=== PATIENT | female | born 1965 | race Caucasian/White ===

== ENCOUNTER 2020-01-10 11:20 | Outpatient (REF) | payer BC, SELFPAY ==
--- NOTE | 2020-01-10 | XR_ITS ---
EXAMINATION: XR FINGER, RIGHT CLINICAL INFORMATION: Mass on thumb. COMPARISON: None TECHNIQUE: 3 views. FINDINGS: In the 1st digit, there is no evidence of fracture or dislocation. Joint spaces are maintained. No abnormal soft tissue calcification is seen. 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 Remainder of the visualized bones appear unremarkable. IMPRESSION: No acute osseous abnormality. No abnormal soft tissue calcification. Etiology of the mass has not been determined by x-ray.
== END 2020-01-10 11:21 | disposition home or self-care (01) ==
LOC: HO.XRAY 11:20
PROVIDERS: PCP Internal Medicine; Visit Provider Orthopaedic Surgery
DX: R22.9 Localized swelling, mass and lump, unspecified (principal)
CPT/HCPCS: 73140

== ENCOUNTER 2020-03-05 12:27 | Outpatient (REF) | payer BC, SELFPAY ==
[2020-03-05 12:54] LABS: COVID-19 Test Negative (Negative)
== END 2020-03-05 12:28 | disposition home or self-care (01) ==
LOC: HO.EMPCOV 12:27
PROVIDERS: Visit Provider Internal Medicine
DX: Z20.828 Contact with and (suspected) exposure to other viral communicable diseases (principal)
CPT/HCPCS: 87635; C9803

== ENCOUNTER 2020-05-30 06:36 | Outpatient (REF) | payer BC, SELFPAY ==
[2020-05-30 07:01] LABS: MANUAL DIFF FLAG NO
[2020-05-30 07:03] LABS: Basophils Percent Auto 0.4 % (0-2); Eosinophils Absolute Auto 0.1 X10*3/uL (0.0-0.4); Eosinophils Percent Auto 1.3 % (0-4); Hematocrit 41.4 % (37-47); Hemoglobin 13.6 g/dl (12.0-16.0); Imm Gran Abs Auto 0.01 X10*3/uL (0.00-0.03); Imm Gran Pct Auto 0.2 % (0.0-0.4); Lymphocytes Absolute Auto 2.4 X10*3/uL (1.2-4.9); Mean Corpuscular HGB Conc 32.9 g/dl (31.0-35.0); Mean Corpuscular Hemoglobin 30.4 pg (27.0-33.0); Mean Corpuscular Volume 92.4 fL (80-98); Mean Platelet Volume 9.6 fL (9.4-12.3); Monocytes Absolute Auto 0.5 X10*3/uL (0.1-1.2); Monocytes Percent Auto 9.7 % (2-11); Neutrophils Absolute Auto 2.3 X10*3/uL (2.0-8.3); Neutrophils Percent Auto 43.4 % (45-73); Platelet Count 292 X10*3/uL (160-400); Red Blood Count 4.48 X10*6/uL (4.20-5.50); Red Cell Distribution Width 12.1 % (11.0-16.0); White Blood Count 5.2 X10*3/uL (4.8-10.8)
[2020-05-30 07:58] LABS: Thyroid Stimulating Hormone 1.11 uIU/mL (0.32-4.0); Vitamin D 25-OH Total 42.7 ng/mL (>30)
[2020-05-30 08:07] LABS: Alanine Aminotransferase 17 U/L (0-31); Albumin Level 4.8 g/dL (3.5-5.0); Alkaline Phosphatase 80 U/L (39-117); Anion Gap 12 (12-20); Aspartate Amino Transferase 19 U/L (5-31); Bilirubin Total 1.7 mg/dL (0.0-1.0); Blood Urea Nitrogen 24 mg/dL (9-16); Carbon Dioxide 32 mmol/L (22-29); Chloride 100 mmol/L (96-108); Cholesterol 282 mg/dL; Estimated Glomerular Filt Rate > 60; Glucose Fasting 95 mg/dL (60-99); HDL Cholesterol 95 mg/dL; LDL Cholesterol Calculated 175 mg/dl; Potassium 4.3 mmol/L (3.3-5.1); Sodium 140 mmol/L (135-145); Total Protein 7.9 g/dL (6.5-8.0); Triglycerides 62 mg/dL
[2020-05-30 08:39] LABS: SARS COV2 IgG Negative (Negative)
[2020-05-30 11:37] LABS: Appearance Urine CLEAR; Color Urine YELLOW; Glucose Urine UA NEG (NEG); Leukocyte Esterase Urine NEG (NEG); Nitrite Urine NEG (NEG); PH 6.5 (5.0-8.0); Specific Gravity - Urine 1.025 (1.005-1.025); Urine Blood 1+ (NEG); Urine Ketones NEG (NEG); Urine Protein NEG (NEG-TRACE)
[2020-05-30 11:45] LABS: Mucus Urine 3+ /LPF; RBC Urine 30-49 /HPF (0); Squamous Epithelial Cell Urine 1+ /LPF; WBC Urine 0 /HPF (0-4)
== END 2020-05-30 06:37 | disposition home or self-care (01) ==
LOC: HO.LAB 06:36
PROVIDERS: PCP Internal Medicine; Visit Provider Internal Medicine
DX: Z00.00 Encounter for general adult medical examination without abnormal findings (principal); Z20.822 Contact with and (suspected) exposure to COVID-19; E89.0 Postprocedural hypothyroidism; D72.820 Lymphocytosis (symptomatic); E55.9 Vitamin D deficiency, unspecified
CPT/HCPCS: 36415; 80053; 80061; 81001; 82306; 84443; 85025; 86769

== ENCOUNTER 2020-06-01 10:13 | Outpatient (REF) | payer BC, SELFPAY ==
[2020-06-01 12:38] LABS: Blood Urea Nitrogen 25 mg/dL (9-16)
== END 2020-06-01 10:14 | disposition home or self-care (01) ==
LOC: HO.LNP 10:13
PROVIDERS: PCP Internal Medicine; Visit Provider Internal Medicine
DX: R79.9 Abnormal finding of blood chemistry, unspecified (principal)
CPT/HCPCS: 84520

== ENCOUNTER 2020-06-07 08:49 | Outpatient (REF) | payer BC, SELFPAY ==
--- NOTE | ~2020-06-07 | MM_ITS ---
EXAMINATION: BONE DENSITOMETRY CLINICAL INDICATION: Osteopenia. COMPARISON: Previous BD dated 04/30/2018 and baseline BD dated 04/11/2016. TECHNIQUE: Using a [employer] DXA System (software version: 13.1) manufactured by [employer], dual-energy x-ray absorptiometry was performed of the lumbar spine and left hip. The images are of good technical quality. Summary results are attached. FINDINGS: AP SPINE L1-L4: Current: BMD 1.260 g/cm2, Z-score 1.6, T-score 0.7, normal, 0.8% increase from previous, 5.0% decrease from baseline (<5% change is not significant). Prior: BMD 1.250 g/cm2. Baseline: BMD 1.326 g/cm2. LEFT FEMUR, NECK: Current: BMD 0.773 g/cm2, Z-score -0.8, T-score -1.9, osteopenia. Prior: BMD 0.837 g/cm2. Baseline: BMD 0.902 g/cm2. LEFT FEMUR, TOTAL: Current: BMD 0.827 g/cm2, Z-score -0.7, T-score -1.4, osteopenia, 14.8% decrease from previous, 18.8% decrease from baseline (<5% change is not significant). Prior: BMD 0.971 g/cm2. Baseline: BMD 1.019 g/cm2. IDENTIFIED RISK FACTORS: Menopause. HISTORY OF FRACTURE: Foot. MEDICATIONS: Calcium supplements or multivitamin, vitamin D. MM/XR DEXA axial skeleton IMPRESSION: 1. DIAGNOSIS: Osteopenia based on the lowest T-score value of -1.9 in the femoral neck applying World Health Organization criteria. 2. 10-YEAR FRACTURE RISK PREDICTION, FRAX: Major osteoporotic fracture (clinical spine, forearm, hip or shoulder) 12.9%. Hip fracture 1.7%. 3. Treatment Recommendations: NOF guidelines recommend consideration for treatment in postmenopausal women and men age 50 and older presenting with the following: -A hip or vertebral (clinical or morphometric) fracture. -T-score less than or equal to -2.5 at the femoral neck or spine after appropriate evaluation to exclude secondary causes. -Low bone mass at the hip or spine and a 10-year fracture probability by FRAX of greater than or equal to 3% for hip fracture or greater than or equal to 20% for major osteoporotic fracture based on the [place] adapted WHO algorithm. 4. Other Recommendations: All treatment decisions require clinical judgment and consideration of individual patient factors, including patient preferences, comorbidities, previous drug use, risk factors not captured in the FRAX model (e.g. frailty, falls, vitamin D deficiency, increased bone turnover, interval significant decline in bone density) and possible under or overestimation of fracture risk by FRAX. Additional medical evaluation for secondary cause of low bone mineral density may be appropriate. FUTURE SCAN RECOMMENDATION: People with diagnosed cases of osteoporosis or at high risk for fracture should have regular bone mineral density tests. For patients eligible for Medicare, routine testing is allowed once every 2 years. The testing frequency can be increased to one year for patients who have rapidly progressing disease, those who are receiving or discontinuing medical therapy to restore bone mass, or have additional risk factors.
== END 2020-06-07 08:50 | disposition home or self-care (01) ==
LOC: HO.MAMMO 08:49
PROVIDERS: PCP Internal Medicine; Visit Provider Internal Medicine
DX: Z13.820 Encounter for screening for osteoporosis (principal); M85.80 Other specified disorders of bone density and structure, unspecified site; Z78.0 Asymptomatic menopausal state; Z79.899 Other long term (current) drug therapy
CPT/HCPCS: 77080

== ENCOUNTER 2020-07-16 14:01 | Outpatient (REF) | payer BC, SELFPAY ==
[2020-07-16 14:55] LABS: Blood Urea Nitrogen 25 mg/dL (9-16); Estimated Glomerular Filt Rate > 60
== END 2020-07-16 14:02 | disposition home or self-care (01) ==
LOC: HO.LAB 14:01
PROVIDERS: PCP Internal Medicine; Visit Provider Internal Medicine
DX: R79.9 Abnormal finding of blood chemistry, unspecified (principal)
CPT/HCPCS: 36415; 82565; 84520

== ENCOUNTER 2020-09-19 16:06 | Outpatient (REF) | payer BC, SELFPAY ==
--- NOTE | ~2020-09-19 | US_ITS ---
EXAMINATION: US RETROPERITONEAL LIMITED (RENAL ONLY) CLINICAL INFORMATION: Calculus of kidney. COMPARISON: Renal ultrasound 01/17/2019 and 05/01/2016. CT abdomen and pelvis 06/30/2018. KUB 09/20/2014 and 11/22/2008. TECHNIQUE: Real-time imaging of the kidneys. FINDINGS: RIGHT KIDNEY: 9.5 x 4.3 x 5.0 cm (SAG x AP x TRV). The kidney is normal in size, contour, and echogenicity. Renal cortical thickness is normal. No calculi or focal parenchymal lesions. No hydronephrosis. LEFT KIDNEY: 9.9 x 5.2 x 4.6 cm (SAG x AP x TRV). The kidney is normal in size, contour, and echogenicity. Renal cortical thickness is normal. There is a 2 mm echogenic density with twinkle artifact in the lower pole suggestive of a stone. No focal parenchymal lesions or hydronephrosis. US/US renal BI IMPRESSION: Small left renal stone.
== END 2020-09-19 16:07 | disposition home or self-care (01) ==
LOC: HO.US 16:06
PROVIDERS: Visit Provider Urology
DX: N20.0 Calculus of kidney (principal)
CPT/HCPCS: 76775

== ENCOUNTER → 2020-11-22 09:40 | Outpatient (BNVA) | payer BC, SELFPAY | PROVIDERS: PCP Internal Medicine; Visit Provider Urology ==

== ENCOUNTER 2021-05-07 13:03 | Outpatient (REF) | payer BC, SELFPAY ==
--- NOTE | ~2021-05-07 | US_ITS ---
EXAMINATION: US RETROPERITONEAL LIMITED (RENAL ONLY) CLINICAL INFORMATION: Calculus of kidney. COMPARISON: Renal ultrasound 09/19/2020 and 01/17/2019. CT abdomen and pelvis 06/30/2018. X-ray abdomen KUB 09/20/2014. TECHNIQUE: Real-time imaging of the kidneys. FINDINGS: RIGHT KIDNEY: 10.4 x 5.7 x 5.0 cm (SAG x AP x TRV). The kidney is normal in size, contour, and echogenicity. Renal cortical thickness is normal. No calculi or focal parenchymal lesions. No hydronephrosis. LEFT KIDNEY: 10.5 x 4.7 x 4.6 cm (SAG x AP x TRV). The kidney is normal in size, contour, and echogenicity. Renal cortical thickness is normal. There is question of 2 small stones in the mid and upper pole measuring 2 mm. No focal parenchymal lesions or hydronephrosis. US/US renal BI IMPRESSION: Question small left renal stones.
== END 2021-05-07 13:04 | disposition home or self-care (01) ==
LOC: HO.HMGCX 13:03
PROVIDERS: PCP Internal Medicine; Visit Provider Urology
DX: N20.0 Calculus of kidney (principal)
CPT/HCPCS: 76775

== ENCOUNTER → 2021-05-15 08:50 | Outpatient (BNVA) | payer BC, SELFPAY | PROVIDERS: PCP Internal Medicine; Visit Provider Urology ==

== ENCOUNTER 2021-07-17 08:17 | Outpatient (REF) | payer BC, SELFPAY ==
[2021-07-17 08:34] LABS: MANUAL DIFF FLAG NO
[2021-07-17 08:52] LABS: Basophils Percent Auto 0.4 % (0-2); Eosinophils Absolute Auto 0.1 X10*3/uL (0.0-0.4); Eosinophils Percent Auto 1.8 % (0-4); Hemoglobin 12.8 g/dl (12.0-16.0); Imm Gran Abs Auto 0.01 X10*3/uL (0.00-0.03); Imm Gran Pct Auto 0.2 % (0.0-0.4); Lymphocytes Percent Auto 42.9 % (20-40); Mean Corpuscular HGB Conc 32.8 g/dl (31.0-35.0); Mean Corpuscular Hemoglobin 30.3 pg (27.0-33.0); Mean Corpuscular Volume 92.2 fL (80.0-98.0); Mean Platelet Volume 9.3 fL (9.4-12.3); Monocytes Absolute Auto 0.5 X10*3/uL (0.1-1.2); Monocytes Percent Auto 10.5 % (2-11); Neutrophils Percent Auto 44.2 % (45-73); Platelet Count 293 X10*3/uL (160-400); Red Blood Count 4.23 X10*6/uL (4.20-5.50); Red Cell Distribution Width 12.4 % (11.0-16.0); White Blood Count 4.6 X10*3/uL (4.8-10.8)
[2021-07-17 09:17] LABS: Appearance Urine CLEAR; Color Urine YELLOW; Glucose Urine UA NEG (NEG); Leukocyte Esterase Urine NEG (NEG); Nitrite Urine NEG (NEG); Specific Gravity - Urine 1.015 (1.005-1.025); Urine Blood 2+ (NEG); Urine Ketones NEG (NEG); Urine Protein NEG (NEG-TRACE)
[2021-07-17 09:25] LABS: Alanine Aminotransferase 14 U/L (0-31); Albumin Level 4.3 g/dL (3.5-5.0); Alkaline Phosphatase 78 U/L (39-117); Anion Gap 10 (12-20); Aspartate Amino Transferase 16 U/L (5-31); Bilirubin Total 0.9 mg/dL (0.0-1.0); Blood Urea Nitrogen 23 mg/dL (9-16); Calcium 9.8 mg/dL (8.4-10.2); Carbon Dioxide 29 mmol/L (22-29); Chloride 103 mmol/L (96-108); Cholesterol 278 mg/dL; Estimated Glomerular Filt Rate > 60; Glucose Fasting 94 mg/dL (60-99); HDL Cholesterol 96 mg/dL; LDL Cholesterol Calculated 172 mg/dl; Potassium 4.4 mmol/L (3.3-5.1); Sodium 138 mmol/L (135-145); Total Protein 7.4 g/dL (6.5-8.0); Triglycerides 50 mg/dL
[2021-07-17 09:36] LABS: WBC Urine 0 /HPF (0-4)
[2021-07-17 09:37] LABS: Squamous Epithelial Cell Urine 1+ /LPF
[2021-07-17 09:46] LABS: Vitamin D 25-OH Total 54.8 ng/mL (>30)
== END 2021-07-17 08:18 | disposition home or self-care (01) ==
LOC: HO.LAB 08:17
PROVIDERS: PCP Internal Medicine; Visit Provider Internal Medicine
DX: Z00.00 Encounter for general adult medical examination without abnormal findings (principal); I10 Essential (primary) hypertension; M85.80 Other specified disorders of bone density and structure, unspecified site; E55.9 Vitamin D deficiency, unspecified; D72.820 Lymphocytosis (symptomatic)
CPT/HCPCS: 36415; 80053; 80061; 81001; 81003; 82306; 85025

== ENCOUNTER 2021-07-18 14:37 | Outpatient (REF) | payer BC, SELFPAY ==
[2021-07-18 15:12] LABS: Thyroid Stimulating Hormone 0.99 uIU/mL (0.32-4.0)
== END 2021-07-18 14:38 | disposition home or self-care (01) ==
LOC: HO.LNP 14:37
PROVIDERS: Visit Provider Internal Medicine
DX: E03.9 Hypothyroidism, unspecified (principal)
CPT/HCPCS: 84443

== ENCOUNTER 2022-04-08 10:42 | Outpatient (REF) | payer BC, SELFPAY ==
--- NOTE | ~2022-04-08 | US_ITS ---
EXAMINATION: US RETROPERITONEAL LIMITED (RENAL ONLY) CLINICAL INFORMATION: Calculus of kidney. COMPARISON: Renal ultrasound 05/07/2021 and 09/19/2020. CT abdomen and pelvis 06/30/2018. X-ray abdomen KUB 09/20/2014. TECHNIQUE: Real-time imaging of the kidneys. FINDINGS: RIGHT KIDNEY: 9.9 x 5.7 x 4.4 cm (SAG x AP x TRV). The kidney is normal in size, contour, and echogenicity. Renal cortical thickness is normal. No calculi or focal parenchymal lesions. No hydronephrosis. LEFT KIDNEY: 9.9 x 5.4 x 4.7 cm (SAG x AP x TRV). The kidney is normal in size, contour, and echogenicity. Renal cortical thickness is normal. No focal parenchymal lesions or hydronephrosis. There is an echogenic stones without caliectasis. A lower pole stone measuring 0.3 x 0.2 cm in midpole stone measures 0.4 x 0.3 cm. US/US renal BI IMPRESSION: 1. Nonobstructive echogenic stones midpole and lower pole left kidney. Only one renal stone was seen on previous ultrasound 09/19/2020 2. The right kidney is unremarkable.
== END 2022-04-08 10:43 | disposition home or self-care (01) ==
LOC: HO.US 10:42
PROVIDERS: Visit Provider Urology
DX: N20.0 Calculus of kidney (principal)
CPT/HCPCS: 76775

== ENCOUNTER 2022-05-15 09:28 | Outpatient (REF) | payer BC, SELFPAY | END 2022-05-15 09:29 | disposition home or self-care (01) | LOC: HO.LAB 09:28 | PROVIDERS: PCP Internal Medicine; Visit Provider Urology | DX: R31.29 Other microscopic hematuria (principal); N39.0 Urinary tract infection, site not specified; N20.0 Calculus of kidney; R35.0 Frequency of micturition; Z79.899 Other long term (current) drug therapy | CPT/HCPCS: 51798; 87086 ==

== ENCOUNTER 2022-07-10 09:16 | Outpatient (REF) | payer BC, SELFPAY ==
--- NOTE | ~2022-07-10 | MM_ITS ---
EXAMINATION: BONE DENSITOMETRY CLINICAL INDICATION: Osteopenia. Vitamin D deficiency. COMPARISON: Previous BD dated 06/07/2020 and baseline BD dated 04/11/2016. TECHNIQUE: Using a [employer] DXA System (software version: 13.1) manufactured by [employer], dual-energy x-ray absorptiometry was performed of the lumbar spine and left hip. The images are of good technical quality. Summary results are attached. FINDINGS: AP SPINE L1-L4: Current: BMD 1.182 g/cm2, Z-score 1.0, T-score 0.0, normal, 6.2% decrease from previous, 10.9% decrease from baseline (<5% change is not significant). Prior: BMD 1.260 g/cm2. Baseline: BMD 1.326 g/cm2. LEFT FEMUR, NECK: Current: BMD 0.858 g/cm2, Z-score -0.2, T-score -1.3, osteopenia. Prior: BMD 0.773 g/cm2. Baseline: BMD 0.902 g/cm2. LEFT FEMUR, TOTAL: Current: BMD 0.932 g/cm2, Z-score 0.1, T-score -0.6, normal, 12.7% increase from previous, 8.5% decrease from baseline (<5% change is not significant). Prior: BMD 0.827 g/cm2. Baseline: BMD 1.019 g/cm2. IDENTIFIED RISK FACTORS: Menopause. HISTORY OF FRACTURE: None listed. MEDICATIONS: Vitamin D, multivitamin. MM/XR DEXA axial skeleton IMPRESSION: 1. DIAGNOSIS: Osteopenia based on the lowest T-score value of -1.3 in the femoral neck applying World Health Organization criteria. 2. 10-YEAR FRACTURE RISK PREDICTION, FRAX: Major osteoporotic fracture (clinical spine, forearm, hip or shoulder) 7.0%. Hip fracture 0.5%. 3. Treatment Recommendations: NOF guidelines recommend consideration for treatment in postmenopausal women and men age 50 and older presenting with the following: -A hip or vertebral (clinical or morphometric) fracture. -T-score less than or equal to -2.5 at the femoral neck or spine after appropriate evaluation to exclude secondary causes. -Low bone mass at the hip or spine and a 10-year fracture probability by FRAX of greater than or equal to 3% for hip fracture or greater than or equal to 20% for major osteoporotic fracture based on the [place] adapted WHO algorithm. 4. Other Recommendations: All treatment decisions require clinical judgment and consideration of individual patient factors, including patient preferences, comorbidities, previous drug use, risk factors not captured in the FRAX model (e.g. frailty, falls, vitamin D deficiency, increased bone turnover, interval significant decline in bone density) and possible under or overestimation of fracture risk by FRAX. Additional medical evaluation for secondary cause of low bone mineral density may be appropriate. FUTURE SCAN RECOMMENDATION: People with diagnosed cases of osteoporosis or at high risk for fracture should have regular bone mineral density tests. For patients eligible for Medicare, routine testing is allowed once every 2 years. The testing frequency can be increased to one year for patients who have rapidly progressing disease, those who are receiving or discontinuing medical therapy to restore bone mass, or have additional risk factors.
== END 2022-07-10 09:17 | disposition home or self-care (01) ==
LOC: HO.MAMMO 09:16
PROVIDERS: PCP Internal Medicine; Visit Provider Internal Medicine
DX: Z13.820 Encounter for screening for osteoporosis (principal); M85.80 Other specified disorders of bone density and structure, unspecified site; E55.9 Vitamin D deficiency, unspecified; Z78.0 Asymptomatic menopausal state
CPT/HCPCS: 77080

== ENCOUNTER 2022-07-10 11:39 | Outpatient (REF) | payer BC, SELFPAY ==
[2022-07-10 11:46] LABS: MANUAL DIFF FLAG NO
[2022-07-10 12:43] LABS: Basophils Percent Auto 0.6 % (0-2); Eosinophils Absolute Auto 0.1 X10*3/uL (0.0-0.4); Eosinophils Percent Auto 1.8 % (0-4); Hematocrit 38.3 % (37.0-47.0); Imm Gran Abs Auto 0.01 X10*3/uL (0.00-0.03); Imm Gran Pct Auto 0.2 % (0.0-0.4); Lymphocytes Absolute Auto 2.3 X10*3/uL (1.2-4.9); Lymphocytes Percent Auto 44.1 % (20-40); Mean Corpuscular HGB Conc 33.9 g/dl (31.0-35.0); Mean Corpuscular Hemoglobin 31.8 pg (27.0-33.0); Mean Corpuscular Volume 93.6 fL (80.0-98.0); Mean Platelet Volume 10.5 fL (9.4-12.3); Monocytes Absolute Auto 0.5 X10*3/uL (0.1-1.2); Monocytes Percent Auto 10.1 % (2-11); Neutrophils Absolute Auto 2.2 x10*3/uL (2.0-8.3); Neutrophils Percent Auto 43.2 % (45-73); Platelet Count 332 X10*3/uL (160-400); Red Blood Count 4.09 X10*6/uL (4.20-5.50); Red Cell Distribution Width 12.7 % (11.0-16.0); White Blood Count 5.1 X10*3/uL (4.8-10.8)
[2022-07-10 13:05] LABS: Appearance Urine Clear; Color Urine Yellow; Glucose Urine UA Negative (Negative); Leukocyte Esterase Urine Negative (Negative); Nitrite Urine Negative (Negative); Specific Gravity - Urine 1.025 (1.005-1.025); UMIC TRIGGER UACC YES; Urine Blood Small (1+) (Negative); Urine Ketones Negative (Negative); Urine Protein Negative (Neg-Trace)
[2022-07-10 13:13] LABS: Bacteria Urine None Seen (None Seen); Hyaline Casts Urine 0-2 /LPF (0-2); RBC Urine >20 /HPF (0-2); Squamous Epithelial Cell Urine 0-2 /HPF (0-2); WBC Urine 0-5 /HPF (0-5)
[2022-07-10 13:21] LABS: Alanine Aminotransferase 14 U/L (0-31); Albumin Level 4.4 g/dL (3.5-5.0); Alkaline Phosphatase 91 U/L (39-117); Anion Gap 12 (12-20); Aspartate Amino Transferase 18 U/L (5-31); Bilirubin Total 0.9 mg/dL (0.0-1.0); Blood Urea Nitrogen 20 mg/dL (9-16); Calcium 9.3 mg/dL (8.4-10.2); Carbon Dioxide 30 mmol/L (22-29); Chloride 103 mmol/L (96-108); Cholesterol 260 mg/dL; Estimated Glomerular Filt Rate > 60; Glucose Fasting 98 mg/dL (60-99); HDL Cholesterol 93 mg/dL; LDL Cholesterol Calculated 158 mg/dl; Potassium 4.1 mmol/L (3.3-5.1); Sodium 141 mmol/L (135-145); Total Protein 7.1 g/dL (6.5-8.0); Triglycerides 46 mg/dL
[2022-07-10 13:37] LABS: Thyroid Stimulating Hormone 1.16 uIU/mL (0.32-4.0); Vitamin D 25-OH Total 44.4 ng/mL (>30)
== END 2022-07-10 11:40 | disposition home or self-care (01) ==
LOC: HO.LNP 11:39
PROVIDERS: Visit Provider Internal Medicine
DX: Z00.00 Encounter for general adult medical examination without abnormal findings (principal); E55.9 Vitamin D deficiency, unspecified; D72.820 Lymphocytosis (symptomatic); E89.0 Postprocedural hypothyroidism; I10 Essential (primary) hypertension
CPT/HCPCS: 80053; 80061; 81001; 82306; 84443; 85025

== ENCOUNTER 2022-07-25 13:24 | Outpatient (REF) | payer BC, SELFPAY ==
--- NOTE | ~2022-07-25 | XR_ITS ---
EXAMINATION: XR HIP, RIGHT CLINICAL INFORMATION: Pain COMPARISON: None available. TECHNIQUE: Two views of the right hip. FINDINGS: Bones and soft tissues are normal. No fracture. Alignment is anatomic. Hip joint space is maintained. XR/XR hip RT min 2V IMPRESSION: Normal right hip.
== END 2022-07-25 13:25 | disposition home or self-care (01) ==
LOC: HO.XRAY 13:24
PROVIDERS: PCP Internal Medicine; Visit Provider Internal Medicine
DX: M25.551 Pain in right hip (principal)
CPT/HCPCS: 73502

== ENCOUNTER 2023-04-30 07:51 | Outpatient (REF) | payer BC, SELFPAY ==
--- NOTE | ~2023-04-30 | US_ITS ---
EXAMINATION: US RETROPERITONEAL LIMITED (RENAL ONLY) CLINICAL INFORMATION: Calculus of kidney. COMPARISON: Renal ultrasound 04/08/2022 TECHNIQUE: Real-time imaging of the kidneys. FINDINGS: RIGHT KIDNEY: 9.4 x 4.5 x 5.6 cm (SAG x AP x TRV). The kidney is normal in size, contour, and echogenicity. Renal cortical thickness is normal. No calculi or focal parenchymal lesions. Pelviectasis without musa hydronephrosis. LEFT KIDNEY: 9.9 x 4.6 x 5.6 cm (SAG x AP x TRV). The kidney is normal in size, contour, and echogenicity. Renal cortical thickness is normal. No calculi or focal parenchymal lesions. No hydronephrosis. US/US renal BI IMPRESSION: Right renal pelviectasis without musa hydronephrosis. No nephrolithiasis appreciated.
== END 2023-04-30 07:52 | disposition home or self-care (01) ==
LOC: HO.US 07:51
PROVIDERS: PCP Internal Medicine; Visit Provider Urology
DX: N20.0 Calculus of kidney (principal)
CPT/HCPCS: 76775

== ENCOUNTER 2023-07-02 10:45 | Outpatient (AMB) | payer BC, SELFPAY ==
--- NOTE | 2023-07-02 11:10 | A.OFFVIS_ITS ---
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 Trades Assistants Required: No Accompanied by: Self / Same As Patient Allergies shrimp Allergy (Severe, Verified 07/02/23 11:19) HIVES/VOMITING latex [Latex] Allergy (Intermediate, Verified 07/02/23 11:19) RASH sulfamethoxazole [From BACTRIM] Allergy (Intermediate, Verified 07/02/23 11:19) HIVES trimethoprim [From BACTRIM] Allergy (Intermediate, Verified 07/02/23 11:19) HIVES Sulfa (Sulfonamide Antibiotics) Allergy (Unknown, Verified 07/02/23 11:19) hives From Benadryl Allergy (Severe, Uncoded 07/02/23 11:19) HIVES/SWELLING Benadryl Allergy (Unknown, Uncoded 07/02/23 11:19) rash Latex Gloves Allergy (Unknown, Uncoded 07/02/23 11:19) rash Medication List - Last Reconciled 07/02/23 by Amrit Rodriges MD levothyroxine 75 mcg PO QAM pyridoxine (vitamin B6) 50 mg PO DAILY 90 days HPI HPI Comments History of Present Illness Details Jazzmine is a pleasant female. She is a patient of Dr. Cope. is seen for the following urologic conditions - microscopic hematuria - nephrolithiasis Persistent microscopic hematuria Renal ultrasound shows no stones Did say had pain on left side Refill vitamin B6 Six-month follow-up repeat imaging Nephrolithiasis Initial presentation with microscopic hematuria Imaging - 09/24 renal ultrasound 2 mm left-sided stone - 05/28 renal ultrasound 2 mm left-sided stone stable - 04/28 renal ultrasound 2 small stones l eft side - 05/30 renal ultrasound no stones seen Occasional flank pain but otherwise stable Therapeutic plan PFSH Medical History Hematuria OA (osteoarthritis) Thyroid disease Uterine fibroid H/O urinary retention Multiple renal calculi Surgical History History of surgery Social History Advance Directives Date on File: 01/10/20 Review of Systems Const Denies chills and Denies fever(s) Card Reports no additional complaints and Denies syncope Resp Denies cough GI Denies abdominal pain and Denies heartburn Reports as per HPI and Denies change in libido Neuro Denies syncope Psych Denies change in libido Endo Denies change in libido Physical Exam Const General: cooperative, healthy appearing, comfortable and no acute distress Orientation/consciousness: patient oriented x3 HEENT Face and sinus: Yes normal facial exam Mouth: moist mucous membranes Neck Neck: Yes normal visual inspection, Yes full ROM and Yes trachea midline Chest Chest palpation & inspection: normal inspection of the chest Resp Effort & Inspection: normal respiratory effort, able to speak in complete sent ences and no respiratory distress GI Inspection: Yes normal to inspection Back/Spine/Pelvis Cervical Spine: normal cervical lordosis Thoracic/Lumbar Spine: thoracic and lumbar spine normal to inspection Skin General skin exam: no rashes or lesions noted Neuro General: patient oriented x3, gait normal, tone normal and moves all extremities Extrem General: Yes normal to inspection and Yes capillary refill normal Assessment & Plan Assessment & Plan (1) Renal stones: Code(s): N20.0 - Calculus of kidney Plan Six-month follow-up imaging Orders: Orders US renal BI 6 Months N20.0 - Calculus of kidney Medications: Refilled pyridoxine (vitamin B6) 50 mg PO DAILY 90 days 90 tabs 1RF N20.0 - Calculus of kidney Patient Instructions: Imaging studies, laboratory and physical exam results were discussed and reviewed in detail. No major barriers to patient understanding were identified. An opportunity to ask questions regarding the treatment plan was provided. All questions were answered. The patient expressed understanding and agreement with the above treatment plan. The patient is aware they should contact our office by phone for worsening of their current condition or the appearance of new urologic symptoms. Compliance is encouraged with any medications and followup testing that is ordered. It is a privilege to participate in the urologic care of your patient. If you have any questions or concerns regarding treatment for the above conditions, or other urologic issues, please do not hesitate to contact me. The office t elephone contact is [phone]. This note is constructed using voice recognition software. While every effort has been made to ensure accuracy development technical lead errors may have been included. Yours sincerely, Dr Amrit Rodriges MD, [facility] - Urology Providers of Expert, Compassionate Care for the Genitourinary System Coding Level of Care Code Est Pt Level 4 (78758) Diagnoses Renal stones N20.0
== END 2023-07-02 11:43 | disposition home or self-care (01) ==
PROVIDERS: PCP Internal Medicine; Visit Provider Urology
DX: N20.0 Calculus of kidney (principal)
CPT/HCPCS: 99214

== ENCOUNTER → 2023-07-02 10:45 | Outpatient (BNVA) | payer BC, SELFPAY | PROVIDERS: Visit Provider Urology ==

== ENCOUNTER 2023-08-07 09:40 | Outpatient (REF) | payer BC, SELFPAY ==
[2023-08-07 09:55] LABS: MANUAL DIFF FLAG NO
[2023-08-07 10:45] LABS: Basophils Percent Auto 0.6 % (0-2); Eosinophils Absolute Auto 0.1 X10*3/uL (0.0-0.4); Eosinophils Percent Auto 1.5 % (0-4); Hematocrit 37.4 % (37.0-47.0); Imm Gran Abs Auto 0.01 X10*3/uL (0.00-0.03); Imm Gran Pct Auto 0.2 % (0.0-0.4); Lymphocytes Percent Auto 42.5 % (20-40); Mean Corpuscular HGB Conc 34.8 g/dl (31.0-35.0); Mean Corpuscular Hemoglobin 32.3 pg (27.0-33.0); Mean Platelet Volume 9.8 fL (9.4-12.3); Monocytes Absolute Auto 0.4 X10*3/uL (0.1-1.2); Monocytes Percent Auto 9.5 % (2-11); Neutrophils Absolute Auto 2.1 x10*3/uL (2.0-8.3); Neutrophils Percent Auto 45.7 % (45-73); Platelet Count 306 X10*3/uL (160-400); Red Blood Count 4.02 X10*6/uL (4.20-5.50); Red Cell Distribution Width 12.8 % (11.0-16.0); White Blood Count 4.6 X10*3/uL (4.8-10.8)
[2023-08-07 10:46] LABS: Appearance Urine Clear; Color Urine Yellow; Glucose Urine UA Negative (Negative); Leukocyte Esterase Urine Trace (Negative); Nitrite Urine Negative (Negative); UMIC TRIGGER UACC YES; Urine Blood Small (1+) (Negative); Urine Ketones Negative (Negative); Urine Protein Negative (Neg-Trace)
[2023-08-07 10:53] LABS: Bacteria Urine None Seen (None Seen); Hyaline Casts Urine 0-2 /LPF (0-2); RBC Urine >20 /HPF (0-2); Squamous Epithelial Cell Urine 0-2 /HPF (0-2); WBC Urine 0-5 /HPF (0-5)
[2023-08-07 11:28] LABS: Alanine Aminotransferase 21 U/L (0-31); Albumin Level 4.4 g/dL (3.5-5.0); Alkaline Phosphatase 90 U/L (39-117); Anion Gap 16 (12-20); Aspartate Amino Transferase 21 U/L (5-31); Blood Urea Nitrogen 22 mg/dL (9-16); Calcium 9.8 mg/dL (8.4-10.2); Carbon Dioxide 27 mmol/L (22-29); Chloride 103 mmol/L (96-108); Cholesterol 252 mg/dL (<200); Estimated Glomerular Filt Rate > 60; Glucose Fasting 86 mg/dL (60-99); HDL Cholesterol 78 mg/dL (>40); LDL Cholesterol Calculated 160 mg/dL (<100); Potassium 4.5 mmol/L (3.3-5.1); Sodium 141 mmol/L (135-145); Total Protein 7.6 g/dL (6.5-8.0); Triglycerides 72 mg/dL (<150)
[2023-08-07 11:48] LABS: Vitamin D 25-OH Total 43.8 ng/mL (>30)
== END 2023-08-07 09:41 | disposition home or self-care (01) ==
LOC: HO.LAB 09:40
PROVIDERS: PCP Internal Medicine; Visit Provider Internal Medicine
DX: I10 Essential (primary) hypertension (principal); D72.820 Lymphocytosis (symptomatic); E55.9 Vitamin D deficiency, unspecified; E03.9 Hypothyroidism, unspecified
CPT/HCPCS: 36415; 80053; 80061; 81001; 82306; 84443; 85025

== ENCOUNTER 2023-11-26 08:58 | Outpatient (REF) | payer BC, SELFPAY ==
--- NOTE | ~2023-11-26 | US_ITS ---
EXAMINATION: US BILATERAL KIDNEYS CLINICAL INFORMATION: Calculus of kidney. COMPARISON: Renal ultrasound 04/30/2023 TECHNIQUE: Real-time imaging of the kidneys. FINDINGS: RIGHT KIDNEY: 9.8 x 6.0 x 5.7 cm (SAG x AP x TRV). The kidney is normal in size, contour, and echogenicity. Renal cortical thickness is normal. No calculi or focal parenchymal lesions. No hydronephrosis. LEFT KIDNEY: 10.6 x 4.8 x 4.6 cm (SAG x AP x TRV). The kidney is normal in size, contour, and echogenicity. Renal cortical thickness is normal. No focal parenchymal lesions or hydronephrosis. 2 mm nonobstructing calculus in the upper pole. US/US renal BI IMPRESSION: 2 mm nonobstructing calculus left upper kidney. No hydronephrosis. Electronically signed by: Dayday Mukherjee MD 12/09/2023 03:32 PM EDT
== END 2023-11-26 08:59 | disposition home or self-care (01) ==
LOC: HO.US 08:58
PROVIDERS: PCP Internal Medicine; Visit Provider Urology
DX: N20.0 Calculus of kidney (principal)
CPT/HCPCS: 76775

== ENCOUNTER 2023-12-24 09:51 | Emergency (ER) | payer BC, SELFPAY ==
--- NOTE | ~2023-12-24 | CT_ITS ---
EXAMINATION: CT ABDOMEN AND PELVIS WITHOUT CONTRAST CLINICAL INFORMATION: History of stones. Left flank pain. COMPARISON: Bilateral renal ultrasound November 26, 2023. CT scan of the pelvis June 30, 2018 TECHNIQUE: Multidetector volumetric imaging was performed from the superior aspect of the liver through the pubic symphysis. Sagittal and coronal reformatted images were obtained on the technologist's workstation. This CT examination was performed using dose optimization techniques as appropriate, variously including the following: *Automated exposure control *Adjustment of mA and/or kV according to patient size (this includes techniques or standardized protocols for targeted exams where dose is matched to indication/reason for exam; i.e. extremities or head) *Use of iterative reconstruction technique DLP: 475 mGy-cm FINDINGS: LUNG BASES: The visualized lung bases are unremarkable. LIVER, GALLBLADDER, AND BILIARY TREE: The liver is normal in size, shape, and attenuation. No focal hepatic lesion or biliary ductal dilatation is present. The gallbladder is unremarkable with no evidence of radiopaque gallstones, gallbladder wall thickening, or obvious pericholecystic inflammatory changes. PANCREAS: Unremarkable. SPLEEN: Unremarkable. ADRENAL GLANDS: Unremarkable. KIDNEYS AND URETERS: There is a 2 mm sized nonobstructive stone lower pole of left kidney. There is no stone in the right kidney. There is no hydronephrosis. No ureteral calculi. Kidneys are normal in size and contour with normal cortical thickness. BLADDER: Unremarkable. GASTROINTESTINAL TRACT: The small and large bowel are unremarkable. The appendix is unremarkable. ABDOMINAL WALL: No significant hernia is appreciated. LYMPH NODES: Normal. VASCULAR: Unremarkable. PELVIC VISCERA: Uterus is anteverted. Partially calcified fibroids in the fundus of the uterus. There is no axillary abnormality. No fluid in the cul-de-sac. OSSEOUS STRUCTURES: Unremarkable. CT/CT abdomen pelvis wo IV con IMPRESSION: 1. No acute abnormality CT scan abdomen pelvis. 2. Nonobstructive stone lower pole left kidney. No hydronephrosis. No ureteral calculi. Fleischner guidelines were followed. Electronically signed by: Sunil Golden MD 12/24/2023 03:20 PM EDT
--- NOTE | ~2023-12-24 | US_ITS ---
EXAMINATION: US TRIPLEX LOWER EXTREMITY, LEFT CLINICAL INFORMATION: Calf pain COMPARISON: None available. TECHNIQUE: Color-flow triplex imaging with spectral analysis and compression Doppler were performed on the left lower extremity. FINDINGS: Respiratory variation, normal compression and augmented flow are noted throughout the left lower extremity. The visualized common femoral vein, superficial femoral vein, profunda femoral vein, popliteal vein and midcalf peroneal and posterior tibial venous segments show no evidence of deep venous thrombosis. There is no Dyer's cyst. US/US venous duplex LE LT IMPRESSION: No evidence of deep venous thrombosis involving the left lower extremity. Electronically signed by: Yo Tolentino DO 12/24/2023 12:18 PM EDT
[2023-12-24 10:00] VITALS: BP 143/90; PULSE 79; RESP 16; TEMP 37; O2SAT 99; BMI 24.9
[2023-12-24 10:32] LABS: MANUAL DIFF FLAG NO
[2023-12-24 10:37] LABS: Basophils Percent Auto 0.2 % (0-2); Eosinophils Absolute Auto 0.1 X10*3/uL (0.0-0.4); Eosinophils Percent Auto 0.5 % (0-4); Hemoglobin 13.1 g/dl (12.0-16.0); Imm Gran Abs Auto 0.11 X10*3/uL (0.00-0.03); Imm Gran Pct Auto 1.2 % (0.0-0.4); Lymphocytes Absolute Auto 2.2 X10*3/uL (1.2-4.9); Lymphocytes Percent Auto 23.2 % (20-40); Mean Corpuscular HGB Conc 35.4 g/dl (31.0-35.0); Mean Corpuscular Hemoglobin 31.7 pg (27.0-33.0); Mean Corpuscular Volume 89.6 fL (80.0-98.0); Mean Platelet Volume 8.8 fL (9.4-12.3); Monocytes Absolute Auto 0.9 X10*3/uL (0.1-1.2); Monocytes Percent Auto 9.6 % (2-11); Neutrophils Absolute Auto 6.1 x10*3/uL (2.0-8.3); Neutrophils Percent Auto 65.3 % (45-73); Platelet Count 447 X10*3/uL (160-400); Red Blood Count 4.13 X10*6/uL (4.20-5.50); Red Cell Distribution Width 12.4 % (11.0-16.0); White Blood Count 9.3 X10*3/uL (4.8-10.8)
[2023-12-24 10:52] LABS: Alanine Aminotransferase 88 U/L (0-31); Albumin Level 4.1 g/dL (3.5-5.0); Alkaline Phosphatase 130 U/L (39-117); Anion Gap 12 (12-20); Aspartate Amino Transferase 35 U/L (5-31); Bilirubin Total 0.6 mg/dL (0.0-1.0); Blood Urea Nitrogen 18 mg/dL (9-16); Calcium 9.9 mg/dL (8.4-10.2); Carbon Dioxide 26 mmol/L (22-29); Chloride 105 mmol/L (96-108); Creatinine Clr Calc Pharmacy 76.2; Estimated Glomerular Filt Rate > 60; Glucose Random 101 mg/dL (60-115); Potassium 3.3 mmol/L (3.3-5.1); Sodium 140 mmol/L (135-145)
[2023-12-24 11:21] LABS: Influenza A PCR NEGATIVE (Negative); Influenza B PCR NEGATIVE (Negative); Resp Syncy Virus RNA Qual PCR NEGATIVE (Negative); SARS COV2 PCR INHOUSE NEGATIVE (Negative)
--- NOTE | 2023-12-24 11:31 | ED_ITS ---
HPI - Abdominal Pain General Chief Complaint: Abdominal Pain Stated Complaint: l side pain-pcp sent for mri Time Seen by Provider: 12/24/23 11:24 Source: patient and family () Mode of arrival: ambulatory Limitations: no limitations History of Present Illness ED Provider: IRENE UP PA-C HPI narrative: 58 year old female with pmhx significant for renal calculi, thyroid disase, OA presents to the ED today for evaluation of left flank pain x10 days. Pain is constant however waxes and wanes in intensity. Currently 10/13. She was evaluated for this in [facility] with renal ultrasound showing 6mm left kidney stone. Prior to her trip, the stone measures 2mm on US ordered by PCP. Admits the pain is now extending into her left hip and down her left leg into her calf. Endorses difficulty ambulating due to the pain. Reports history of kidney stones however states this feels different. Denies injury/ trauma/ fall. She tells me she returned from a trip to [facility] on Thursday (2 days ago). Denies fever, chills, chest pain, SOB, palpitations, cough, hemoptysis, nausea, vomiting, abdominal pain, diarrhea, constipation, dysuria, hematuria. Denies back pain, saddle anesthesia, numbness/tingling/weakness of the lower extremity, bowel or bladder incontinence or retention. Denies hx IVDU. Related Data Home Medications ?Medication ?Instructions ?Recorded ?Confirmed levothyroxine 75 mcg tablet 75 mcg PO QAM 05/15/21 07/02/23 Previous Rx's ?Medication ?Instructions ?Recorded pyridoxine (vitamin B6) 50 mg 50 mg PO DAILY 90 days #90 tabs 07/02/23 tablet ketorolac 10 mg tablet 10 mg PO Q8H 5 days #15 tabs 12/24/23 tamsulosin 0.4 mg capsule (Flomax) 0.4 mg PO BEDTIME 7 days #7 caps 12/24/23 Allergies Allergy/AdvReac Type Severity Reaction Status Date / Time shrimp Allergy Severe HIVES/VOMIT Verified 12/24/23 10:03 ING latex [Latex] Allergy Intermediate RASH Verified 12/24/23 10:03 sulfamethoxazole Allergy Intermediate HIVES Verified 12/24/23 10:03 [From BACTRIM] trimethoprim [From BACTRIM] Allergy Intermediate HIVES Verified 12/24/23 10:03 Sulfa (Sulfonamide Allergy Unknown hives Verified 12/24/23 10:03 Antibiotics) From Benadryl Allergy Severe HIVES/SWELL Uncoded 07/02/23 11:19 ING Benadryl Allergy Unknown rash Uncoded 07/02/23 11:19 Latex Gloves Allergy Unknown rash Uncoded 07/02/23 11:19 Review of Systems Review of Systems Constitutional: No fever, chills, fatigue, night sweats, weight changes ENT/Mouth: No ear pain, hearing loss, nasal congestion, sinus pain, rhinorrhea, sore throat Eyes: No eye pain, swelling, redness, vision changes, discharge Cardio: No chest pain, palpitations, DURAN, orthopnea, peripheral edema Pulm: No SOB, cough, sputum, wheezing, dyspnea, hemoptysis GI: No nausea, vomiting, hematemesis, abdominal pain, diarrhea, constipation, hematochezia, melena : No irregular bleeding, dysuria, frequency, urgency, hesitancy, hematuria, urinary flow changes, urinary incontinence or retention, +left flank pain MSK: No back pain, neck pain, joint pain, myalgias, +left calf pain Skin: No lesions, rashes Neuro: No weakness, numbness, paresthesias, LOC, dizziness, headache Psych: No anxiety/panic, depression, SI/HI, AH/VH All other systems reviewed and are negative. [facility] Past Medical History Attestation statement: The following information was validated with the patient. Source: old records reviewed and nursing notes reviewed Medical History Hematuria OA (osteoarthritis) Thyroid disease Uterine fibroid H/O urinary retention Multiple renal calculi Surgical History History of surgery Social History Social History Smoked in Last 30 Days: No Use of substances other than those prescribed or required for medical reasons: No Any prior treatment program specific to substance use: No Advance Directives: Yes Advance Directives on File: Yes Advance Directives Date on File: 01/10/20 Do you have a plan to hurt others: No Plan Patient : No Physical Exam ED Vital Signs: Vital Signs - 24 hr 12/24/23 10:00 12/24/23 13:06 12/24/23 16:25 Temperature 98.6 F 98 F 98.7 F Pulse Rate 79 74 67 Respiratory Rate 16 16 16 Blood Pressure 143/90 H 154/79 H 115/60 Pulse Oximetry 99 98 97 Oxygen Delivery Method Room Air Room Air Room Air BMI result Body Mass Index 24.9 Patient hypertensive to 143/90, vitals otherwise WNL General: Well appearing, in no acute distress. Skin: Warm, dry, intact. No rashes or lesions. Head: Normocephalic, atraumatic. EENT: Hearing is intact b/l. Conjunctiva clear. Sclera is anicteric. PERRLA. Moist mucous membranes.? Neck: Supple without LAD. FROM. Trachea midline.? Cardiac: Chest wall symmetric. RRR. No MRG. No JVD. Lungs: Normal respiratory effort without accessory muscle use. CTA bilaterally. Abdomen: Soft, non-tender, non-distended. No rebound tenderness or guarding. Positive BS x4. Left CVAT. Back: No midline spinous or paraspinal tenderness. No step off deformity. Ext: Upper and lower extremities atraumatic, without deformity, swelling or erythema. Full ROM throughout. Left calf tender to palpation without overlying erythema or swelling. No pitting or peripheral edema Neuro: AOx3. Normal speech. Strength 5/5 intact throughout. No saddle anesthesia. Sensation intact to light touch. NV intact distally. Ambulating with steady gait. Psych: Appropriate mood and affect. Responds appropriately to questions. Course Course Course Narrative: 1131 -- CBC without leukocytosis or left shift. no anemia, h&h stable. chemitry without acute electrolyte abnormality requiring intervention. BUN slightly elevated to 18, creatinine wnl. elevated liver enzymes. she has tested negative for covid, flu, rsv. UA pending. > on chart review, patient had renal ultrasound performed on 11/26/2023 which showed a 2 mm nonobstructing calculi within left upper kidney without evidence of hydronephrosis > ct abdomen/ pelvis ordered to evaluate for stone/ obstruction > I have concern for DVT given recent travel to [place] w/ left hip pain and calf tenderness > duplex added on. > IV fluids ordered, morphine ordered for pain control. 1340 -- Patient's pain initially well-controlled with morphine. Patient reports moving wrong , now has worsening pain. IV Toradol ordered. Will continue to monitor. Urinalysis showing small urine blood, negative nitrites, trace leukocyte esterase with 6-10 RBCs, no urine bacteria seen. Venous duplex LLE without evidence of VTE. CT abd pending. 1639 -- CT abdomen/pelvis showing nonobstructive 2 mm stone to lower pole of left kidney without evidence of hydronephrosis. On my interpretation of CT scan, I appreciate multiple stones within the urinary bladder and the left ureter. Remarkable small/large bowel. Normal appendix. No other acute findings. > on re-evaluation, patient reports complete resolution of symptoms following Toradol administration. This makes me suspect renal colic. Informed patient of workup results. Will send her home with Flomax and Toradol for pain control. She tells me she has a follow-up with her urologist, Dr. Rodriges next week. I advised her to keep this appointment. Patient has remained stable throughout ED visit today. Discussed worrisome signs and symptoms and when to return to the ED. All questions answered at this time. Patient is agreeable with disposition and stable for discharge. Medical Decision Making Medical Decision Making MDM Narrative: 58 year old female with pmhx significant for renal calculi, thyroid disase, OA presents to the ED today for evaluation of left flank pain x10 days. Hypertensive to 143/90, vitals otherwise wnl. Afebrile. She is nontoxic appearing and in NAD. On exam, there is left cvat. Abdomen is soft, nondistended, nontender to palpation, no rebound tenderness or guarding. Normoactive bowel sounds x4. no midline spinous tenderness or step off deformity. positive left calf tenderness. no overlying erythema/ swelling. No pitting or peripheral edema. Differential diagnosis includes urinary tract infection, nephrolithiasis, renal colic, hydronephrosis, constipation, sciatica, DVT, arthritis. Lower suspicion for pyelonephritis, diverticulosis/diverticulitis. Presentation not consistent with cauda equina, epidural abscess, Guillain-Gipsy, cord compression. Labs, viral serology, urinalysis ordered from triage. Plan to add on venous duplex ultrasound to assess for DVT along with CT abdomen/pelvis to evaluate for stone/obstruction. IV fluids and morphine ordered for pain control. Will continue to re-evaluate. Differential Diagnosis Differential Diagnoses: The differential diagnosis associated with the presentation includes As above Admission/Observation Not indicated. Lab Data MDM Lab Attestation statement: I reviewed the patient's lab results. As above 12/24/23 10:21 12/24/23 10:21 Labs: Lab Results 12/24/23 12/24/23 12/24/23 Range/Units 10:21 11:50 13:01 WBC 9.3 (4.8-10.8) X10*3/uL RBC 4.13 L (4.20-5.50) X10*6/uL Hgb 13.1 (12.0-16.0) g/dl Hct 37.0 (37.0-47.0) % MCV 89.6 (80.0-98.0) fL MCH 31.7 (27.0-33.0) pg MCHC 35.4 H (31.0-35.0) g/dl RDW 12.4 (11.0-16.0) % Plt Count 447 H D (160-400) X10*3/uL MPV 8.8 L (9.4-12.3) fL Immature Gran % (Auto) 1.2 H (0.0-0.4) % Neut % (Auto) 65.3 (45-73) % Lymph % (Auto) 23.2 (20-40) % Jackson % (Auto) 9.6 (2-11) % Eos % (Auto) 0.5 (0-4) % Baso % (Auto) 0.2 (0-2) % Lymph # (Auto) 2.2 (1.2-4.9) X10*3/uL Jackson # (Auto) 0.9 (0.1-1.2) X10*3/uL Eos # (Auto) 0.1 (0.0-0.4) X10*3/uL Baso # (Auto) 0.0 (0.0-0.2) X10*3/uL Abs Immat Gran (auto) 0.11 H (0.00-0.03) X10*3/uL Absolute Neuts (auto) 6.1 (2.0-8.3) x10*3/uL Absolute Nucleated RBC 0.000 (0.0-0.012) X10*3/uL Nucleated RBC % (auto) 0.0 (0.0-0.2) /100WBC ESR 51 H (0-20) MM/HR Sodium 140 (135-145) mmol/L Potassium 3.3 D (3.3-5.1) mmol/L Chloride 105 (96-108) mmol/L Carbon Dioxide 26 (22-29) mmol/L Anion Gap 12 (12-20) BUN 18 H (9-16) mg/dL Creatinine 0.75 (0.5-1.4) mg/dL Estim Creat Clear Calc 76.2 Estimated GFR > 60 Random Glucose 101 (60-115) mg/dL Calcium 9.9 (8.4-10.2) mg/dL Total Bilirubin 0.6 (0.0-1.0) mg/dL AST 35 H (5-31) U/L ALT 88 H (0-31) U/L Alkaline Phosphatase 130 H (39-117) U/L C-Reactive Protein 2.98 H (< or = 0.50) mg/dL Total Protein 8.0 (6.5-8.0) g/dL Albumin 4.1 (3.5-5.0) g/dL Urine Color Yellow Urine Appearance Clear Urine pH 8.0 (5.0-9.0) Ur Specific [place] 1.010 (1.005-1.025) Urine Protein Negative (Neg-Trace) mg/dL Urine Glucose (UA) Negative (Negative) mg/dL Urine Ketones 15 (Negative) mg/dL Urine Blood Small (1+) H (Negative) Urine Nitrite Negative (Negative) Ur Leukocyte Esterase Trace H (Negative) Urine RBC 6-10 H (0-2) /HPF Urine WBC 0-5 (0-5) /HPF Ur Squamous Epith Cells 0-2 (0-2) /HPF Urine Bacteria None Seen (None Seen) Hyaline Casts 0-2 (0-2) /LPF Respiratory Panel Duarte See Note Adenovirus (Rapid PCR) Not Detected (Not Detect.) B.pert (TEM-PCR) Not Detected (Not Detect.) B.parapertussis DNA PCR Not Detected (Not Detect.) C. pneumoniae DNA (PCR) Not Detected (Not Detect.) Coronavirus OC43 (PCR) Not Detected (Not Detect.) Coronavirus HKU1 (PCR) Not Detected (Not Detect.) Coronavirus 229E (PCR) Not Detected (Not Detect.) Coronavirus NL63 (PCR) Not Detected (Not Detect.) Human Metapneumovir PCR Not Detected (Not Detect.) Influenza A (RT-PCR) Not Detected (Not Detect.) Influenza Type A (PCR) NEGATIVE (Negative) Influenza B (RT-PCR) Not Detected (Not Detect.) Influenza Type B (PCR) NEGATIVE (Negative) M. pneumoniae (PCR) Not Detected (Not Detect.) Parainfluenza 1 (PCR) Not Detected (Not Detect.) Parainfluenza 2 (PCR) Not Detected (Not Detect.) Parainfluenza 3 (PCR) Not Detected (Not Detect.) Parainfluenza 4 (PCR) Not Detected (Not Detect.) RSV (PCR) Not Detected (Not Detect.) RSV RNA Qual (PCR) NEGATIVE (Negative) Entero/Rhino (PCR) Not Detected (Not Detect.) SARS-CoV-2 RNA (RT-PCR) NEGATIVE Not Detected (Negative) Independent Interpretation I performed an independent interpretation of an: Ultrasound and CT Scan Interpretation: Renal ultrasound 11/26/23 showing small nonobstructing calculus in left kidney, agree with radiologist's interpretation. Venous duplex left lower extremity without evidence of DVT, agree with radiologist's interpretation. CT abdomen/pelvis with multiple stones left UVJ, larger stone with left kidney, agree with radiologist's interpretation. Radiology Impression Discussion of test interpretation with radiology: I have reviewed the radiologist's reading. Radiologist Impression: EXAMINATION: US BILATERAL KIDNEYS CLINICAL INFORMATION: Calculus of kidney. COMPARISON: Renal ultrasound 04/30/2023 TECHNIQUE: Real-time imaging of the kidneys. FINDINGS: RIGHT KIDNEY: 9.8 x 6.0 x 5.7 cm (SAG x AP x TRV). The kidney is normal in size, contour, and echogenicity. Renal cortical thickness is normal. No calculi or focal parenchymal lesions. No hydronephrosis. LEFT KIDNEY: 10.6 x 4.8 x 4.6 cm (SAG x AP x TRV). The kidney is normal in size, contour, and echogenicity. Renal cortical thickness is normal. No focal parenchymal lesions or hydronephrosis. 2 mm nonobstructing calculus in the upper pole. US/US renal BI IMPRESSION: 2 mm nonobstructing calculus left upper kidney. No hydronephrosis. Electronically signed by: Dayday Mukherjee MD 12/09/2023 03:32 PM EDT EXAMINATION: US TRIPLEX LOWER EXTREMITY, LEFT CLINICAL INFORMATION: Calf pain COMPARISON: None available. TECHNIQUE: Color-flow triplex imaging with spectral analysis and compression Doppler were performed on the left lower extremity. FINDINGS: Respiratory variation, normal compression and augmented flow are noted throughout the left lower extremity. The visualized common femoral vein, superficial femoral vein, profunda femoral vein, popliteal vein and midcalf peroneal and posterior tibial venous segments show no evidence of deep venous thrombosis. There is no Dyer's cyst. US/US venous duplex LE LT IMPRESSION: No evidence of deep venous thrombosis involving the left lower extremity. Electronically signed by: Yo Tolentino DO 12/24/2023 12:18 PM EDT EXAMINATION: CT ABDOMEN AND PELVIS WITHOUT CONTRAST CLINICAL INFORMATION: History of stones. Left flank pain. COMPARISON: Bilateral renal ultrasound November 26, 2023. CT scan of the pelvis June 30, 2018 TECHNIQUE: Multidetector volumetric imaging was performed from the superior aspect of the liver through the pubic symphysis. Sagittal and coronal reformatted images were obtained on the technologist's workstation. This CT examination was performed using dose optimization techniques as appropriate, variously including the following: *Automated exposure control *Adjustment of mA and/or kV according to patient size (this includes techniques or standardized protocols for targeted exams where dose is matched to indication/reason for exam; i.e. extremities or head) *Use of iterative reconstruction technique DLP: 475 mGy-cm FINDINGS: LUNG BASES: The visualized lung bases are unremarkable. LIVER, GALLBLADDER, AND BILIARY TREE: The liver is normal in size, shape, and attenuation. No focal hepatic lesion or biliary ductal dilatation is present. The gallbladder is unremarkable with no evidence of radiopaque gallstones, gallbladder wall thickening, or obvious pericholecystic inflammatory changes. PANCREAS: Unremarkable. SPLEEN: Unremarkable. ADRENAL GLANDS: Unremarkable. KIDNEYS AND URETERS: There is a 2 mm sized nonobstructive stone lower pole of left kidney. There is no stone in the right kidney. There is no hydronephrosis. No ureteral calculi. Kidneys are normal in size and contour with normal cortical thickness. BLADDER: Unremarkable. GASTROINTESTINAL TRACT: The small and large bowel are unremarkable. The appendix is unremarkable. ABDOMINAL WALL: No significant hernia is appreciated. LYMPH NODES: Normal. VASCULAR: Unremarkable. PELVIC VISCERA: Uterus is anteverted. Partially calcified fibroids in the fundus of the uterus. There is no axillary abnormality. No fluid in the cul-de-sac. OSSEOUS STRUCTURES: Unremarkable. CT/CT abdomen pelvis wo IV con IMPRESSION: 1. No acute abnormality CT scan abdomen pelvis. 2. Nonobstructive stone lower pole left kidney. No hydronephrosis. No ureteral calculi. Fleischner guidelines were followed. Electronically signed by: Sunil Golden MD 12/24/2023 03:20 PM EDT Independent Historian Clinical information obtained from an independent historian. History obtained from or confirmed by: Spouse () External Record Review External record reviewed: Inpatient record, Office record, Outpatient record, Prior outpatient labs, Prior outpatient radiology, Primary care record and Outside ED record Prescription Management I considered prescription management with: Pain Medication (Toradol) and Other (Flomax) Chronic Conditions Patient?s care impacted by: Other (nephrolithiasis) Social Determinants Patient?s care significantly limited by Social Determinants of Health including: Other Social Determinant of Health Medications Administered Discontinued Medications Generic Name Dose Route Start Last Admin Trade Name Freq PRN Reason Stop Dose Admin Sodium Chloride 1,000 mls @ 999 mls/hr 12/24/23 11:45 12/24/23 12:55 Ns IV 12/24/23 12:45 Infused .Q1H1M DARNELL Infusion Ketorolac Tromethamine 15 mg 12/24/23 13:40 12/24/23 13:44 Ketorolac Tromethamine 15 Mg/Ml Vial IVPUSH 12/24/23 13:41 15 mg ONCE ONE Administration Morphine Sulfate 4 mg 12/24/23 11:38 12/24/23 11:51 Morphine Sulfate 4 Mg/Ml Cartridge IVPUSH 12/24/23 11:39 4 mg ONCE ONE Administration Protocol Ondansetron HCl 4 mg 12/24/23 11:41 12/24/23 11:51 Ondansetron Hcl 4 Mg/2 Ml Vial IVPUSH 12/24/23 11:42 4 mg ONCE ONE Administration Critical Care Time Critical Care Time Critical Care Time: Yes Total Critical Care Time: 34 Attestation: Critical care time in the amount of 34 minutes has been provided to the patient in terms of direct patient care, frequent reevaluation on IV morphine, review and interpretation of medical data and results, and management of potentially life-threatening conditions. This is all outside of any medical procedures. Discharge Plan Discharge Clinical Impression: Renal colic on left side, Sciatica, Calculus of left kidney Patient Disposition: Home, Self-Care Instructions: Renal Colic (ED), Sciatica (ED), Lower Back Exercises (ED) Additional Instructions: Your blood work today is reassuring. Your urine shows small amount of blood.. The CT scan of your abdomen shows 2 mm nonobstructing stone within your left kidney along with other stones within your left ureter. You are likely passing kidney stones. Flomax has been sent to your pharmacy to help flush the stones out. Toradol is a pain medication that has been sent to your pharmacy. Do not take this with other NSAIDs such as Motrin or naproxen as this can increase risk of GI bleeding. Keep your follow-up appointment with Dr. Rodriges next week. The ultrasound of your left leg is negative for clot. As discussed, you may be experiencing sciatica. You have been provided with exercises to try at home. If pain persists, please follow up with PCP as you may require referral to physical therapy. Return with new or worsening symptoms. In the case of an emergency call 911. Prescriptions: New tamsulosin [Flomax] 0.4 mg capsule 0.4 mg PO BEDTIME 7 Days Qty: 7 0RF ketorolac 10 mg tablet 10 mg PO Q8H 5 Days Qty: 15 0RF No Action pyridoxine (vitamin B6) 50 mg tablet 50 mg PO DAILY 90 Days Qty: 90 1RF levothyroxine 75 mcg tablet 75 mcg PO QAM Referrals: [facility] [place] [facility] [Provider Group] Print Language: Hungarian
[2023-12-24 11:49] LABS: C Reactive Protein 2.98 mg/dL (< or = 0.50)
--- OUTSIDE RECORDS SUMMARY | 2023-12-24 11:50 | XMS_ITS | Patient Health Record ---
Author Organization Billy Cope MD Address [address] [place], [place] [id number] Care Team Providers Care Air Control/Anti Air Warfare Officer Name Role Phone Billy Cope Primary Care Provider ALLERGIES Allergen (clinical drug ingredient) Drug/Non Drug Allergy documented on EMR Reaction Allergy Type Onset Date Status Levaquin tendon inflammation Drug Allergy Active diphenhydramine Benadryl hives Drug Allergy A ctive sulfamethoxazole / trimethoprim Bactrim (uncoded) rash Allergy Active RESULTS Component Value Reference Range Notes US renal BI Reviewed date:05/01/2023 12:53:41 PM Interpretation: Performing Lab: Notes/Report: [address] [address] Ultrasound Report Signed Patient: Jazzmine Holbrook MR#: [id number] 56 : 1965 Acct:[id number] Age/Sex: 58 / F ADM Date: 04/30/23 Loc: HO.US Attending Dr: Amrit Rodriges MD Ordering Physician: Amrit Rodriges MD Date of Service: 04/30/23 Procedure(s): US renal BI Accession Number(s): [id number] cc: Amrit Rodriges MD; Billy Cope MD EXAMINATION: US RETROPERITONEAL LIMITED (RENAL ONLY) CLINICAL INFORMATION: Calculus of kidney. COMPARISON: Renal ultrasound 04/08/2022 TECHNIQUE: Real-time imaging of the kidneys. FINDINGS: RIGHT KIDNEY: 9.4 x 4.5 x 5.6 cm (SAG x AP x TRV). The kidney is normal in size, contour, and echogenicity. Renal cortical thickness is normal. No calculi or focal parenchymal lesions. Pelviectasis without musa hydronephrosis. LEFT KIDNEY: 9.9 x 4.6 x 5.6 cm (SAG x AP x TRV). The kidney is normal in size, contour, and echogenicity. Renal cortical thickness is normal. No calculi or focal parenchymal lesions. No hydronephrosis. US/US renal BI IMPRESSION: Right renal pelviectasis without musa hydronephrosis. No nephrolithiasis appreciated. Dictated By: Sarah Bonner MD Signed By: <Electronically signed by Sarah Bonner MD in OV> 04/30/23 1901 DD/ 0812 TD/TT: General Internal Medicine Physician: PAP SMEAR (THIN PREP) Reviewed date:05/14/2023 02:30:31 PM Interpretation:Negative Performing Lab: Notes/Report: Negative PAP SMEAR (THIN PREP) MAMMOGRAM DIGITAL BILATERAL SCREEN Reviewed date:05/28/2023 01:58:42 PM Interpretation:Stable Performing Lab: Notes/Report: Stable Complete Blood Count Auto Di ff Reviewed date:08/07/2023 12:45:37 PM Interpretation: Performing Lab:[facility], [address] [place] [phone] Notes/Report: White Blood Count 4.6 4.8-10.8 X10*3/uL Red Blood Count 4.02 4.20-5.50 X10*6/uL Hemoglobin 13.0 12.0-16.0 g/dl Hematocrit 37.4 37.0-47.0 % Mean Corpuscular Volume 93.0 80.0-98.0 fL Mean Corpuscular Hemoglobin 32.3 27.0-33.0 pg Mean Corpuscular HGB Conc 34.8 31.0-35.0 g/dl Red Cell Distribution Width 12.8 11.0-16.0 % Platelet Count 306 160-400 X10*3/uL Mean Platelet Volume 9.8 9.4-12.3 fL Neutrophils Percent Auto 45.7 45-73 % Imm Gran Pct Auto 0.2 0.0-0.4 % Lymphocytes Percent Auto 42.5 20-40 % Monocytes Percent Auto 9.5 2-11 % Eosinophils Percent Auto 1.5 0-4 % Basophils Percent Auto 0.6 0-2 % NRBC Pct Auto 0.0 0.0-0.2 /100WBC Neutrophils Absolute Auto 2.1 2.0-8.3 x10*3/u L Imm Gran Abs Auto 0.01 0.00-0.03 X10*3/uL Lymphocytes Absolute Auto 2.0 1.2-4.9 X10*3/u L Monocytes Absolute Auto 0.4 0.1-1.2 X10*3/uL Eosinophils Absolute Auto 0.1 0.0-0.4 X10*3/u L Basophils Absolute Auto 0.0 0.0-0.2 X10*3/uL NRBC Abs Auto 0.000 0.0-0.012 X10*3/uL Comprehensive [place]. Panel Fa Reviewed date:08/10/2023 06:47:12 PM Interpretation: Performing Lab:[facility], [address] [place] [phone] Notes/Report: Sodium 141 135-145 mmol/L Potassium 4.5 3.3-5.1 mmol/L Chloride 103 96-108 mmol/L Carbon Dioxide 27 22-29 mmol/L Anion Gap 16 12-20 Blood Urea Nitrogen 22 9-16 mg/dL Creatinine 0.82 0.5-1.4 mg/dL Estimated Glomerular Filt Rate > 60 NOTE: For -Afghan individuals, multiply the result by 1.210. Chronic Kidney Disease: Estimated GFR < 60 mL/min/1.73m2 Severe Kidney Disease: Estimated GFR < 15 mL/min/1.73m2 Glucose Fasting 86 60-99 mg/dL Calcium 9.8 8.4-10.2 mg/dL Bilirubin Total 1.0 0.0-1.0 mg/dL Aspartate Amino Transferase 21 5-31 U/L Alanine Aminotransferase 21 0-31 U/L Total Protein 7.6 6.5-8.0 g/dL Albumin Level 4.4 3.5-5.0 g/dL Alkaline Phosphatase 90 39-117 U/L Lipid Panel Reviewed date:08/10/2023 12:44:49 PM Interpretation: Performing Lab:[facility], [address] [place] [phone] Notes/Report: Triglycerides 72 <150 mg/dL Desirable Triglyceride: less than 150 mg/dL Borderline High Triglyceride 150-199 mg/dL High Triglyceride: 200-499 mg/dL Very High Triglyceride: greater than or equal to 5OO mg/dL Cholesterol 252 <200 mg/dL Desirable Cholesterol: less than 200 mg/dL Borderline High Cholesterol: 200-239 mg/dL High Cholesterol: greater than 239 mg/dL LDL Cholesterol Calculated 160 <100 mg/dL Desirable LDL: less than 100 mg/dL Near Optimal/Above Optimal LDL: 110-129 mg/dL Borderline High LDL: 130-159 mg/dL High LDL: 160-189 mg/dL Very High LDL: greater than or equal to 190 mg/dL HDL Cholesterol 78 >40 mg/dL Desirable HDL: greater than 40 mg/dL Note: This HDL assay may give artificially low results in patients with liver disease. Vitamin D 25-OH Total Reviewed date:08/10/2023 12:38:06 PM Interpretation: Performing Lab:[facility], [address] [place] [phone] Notes/Report: Vitamin D 25-OH Total 43.8 >30 ng/mL Health Based Reference Values* < 20 ng/mL Deficient 20-30 ng/mL Insufficient > 30 ng/mL Sufficient *Meena WHITFIELD. N Engl J Med. 2007;357:266-280 Care must be taken in interpreting Vitamin D results from different laboratories and methodologies. Published data demonstrated that results from patients undergoing hemodialysis may show a negative bias when tested with various automated 25-OH vitamin D assays when compared to LC-MS/MS. When testing samples from patients whose predominant form of Vitamin D is Vitamin D2, such as patients receiving Vitamin D2 supplementation, results that are subtherapeutic should be confirmed with another method such as LC-MS/MS. TSH reflex Free T4 Reviewed date:08/10/2023 12:37:57 PM Interpretation: Performing Lab:[facility], [address] [place] [phone] Notes/Report: TSH reflex Free T4 1.20 0.32-4.0 uIU/mL UA ClnCatch+Micro w/rflx Cul t Reviewed date:08/07/2023 12:43:03 PM Interpretation: Performing Lab:[facility], [address] [place] [phone] Notes/Report: Urine, Clean Catch Color Urine Yellow Appearance Urine Clear PH 7.0 5.0-9.0 Glucose Urine UA Negative Negative mg/dL Urine Blood Small (1+) Negative Specific [place] - Urine 1.020 1.005-1.025 Urine Protein Negative Neg-Trace mg/dL Urine Ketones Negative Negative mg/dL Nitrite Urine Negative Negative Leukocyte Esterase Urine Trace Negative RBC Urine >20 0-2 /HPF WBC Urine 0-5 0-5 /HPF Squamous Epithelial Cell Urine 0-2 0-2 /HPF Bacteria Urine None Seen None Seen Hyaline Casts Urine 0-2 0-2 /LPF US renal BI Reviewed date:12/09/2023 04:33:49 PM Interpretation: Performing Lab: Notes/Report: [address] [address] Ultrasound Report Signed Patient: Jazzmine Holbrook MR#: [id number] 56 : 1965 Acct:[id number] Age/Sex: 58 / F ADM Date: 11/26/23 Loc: HO.US Attending Dr: Amrit Rodriges MD Ordering Physician: Amrit Rodriges MD Date of Service: 11/26/23 Procedure(s): US renal BI Accession Number(s): [id number] cc: Amrit Rodriges MD; Billy Cope MD EXAMINATION: US BILATERAL KIDNEYS CLINICAL INFORMATION: Calculus of kidney. COMPARISON: Renal ultrasound 04/30/2023 TECHNIQUE: Real-time imaging of the kidneys. FINDINGS: RIGHT KIDNEY: 9.8 x 6.0 x 5.7 cm (SAG x AP x TRV). The kidney is normal in size, contour, and echogenicity. Renal cortical thickness is normal. No calculi or focal parenchymal lesions. No hydronephrosis. LEFT KIDNEY: 10.6 x 4.8 x 4.6 cm (SAG x AP x TRV). The kidney is normal in size, contour, and echogenicity. Renal cortical thickness is normal. No focal parenchymal lesions or hydronephrosis. 2 mm nonobstructing calculus in the upper pole. US/US renal BI IMPRESSION: 2 mm nonobstructing calculus left upper kidney. No hydronephrosis. Electronically signed by: Dayday Mukherjee MD 12/09/2023 03:32 PM EDT Dictated By: Dayday Mukherjee MD Signed By: <Electronically signed by Dayday Mukherjee MD in OV> 12/09/23 1532 DD/ 4 TD/TT: 11/26/23927 General Internal Medicine Physician: BALTA REASON FOR REFERRAL No Information MEDICATIONS Medication SIG (Take, Route, Frequency, Duration) Notes Start Date End Date Status Levothyroxine Sodium 75 MCG TAKE ONE TABLET BY MOUTH EVERY DAY IN THE MORNING ON AN EMPTY STOMACH Active EpiPen 2-Tyson 0.3 MG/0.3ML as directed In jection daily for 1 dose 01/31/2013 Active Singulair 10 MG 1 tablet Orally Once a day for 30 day(s) Not-Taking Albuterol Sulfate HFA 108 (90 Base) MCG/ACT 1 puff as needed Inhalation every 4 hrs for 30 days 01/19/2023 Active Diclofenac Potassium 50 MG 1 tablet with food or milk as needed Orally Twice a day Not-Taking Tamsulosin HCl 0.4 MG 1 capsule Orally O nce a day for 30 day(s) Not-Taking Vitamin B6 50 MG 1 tablet Orally for 30 day(s) Not-Taking Acetaminophen-Codeine 300-30 MG 1 tablet as needed Orally every 6 hrs for 7 days 12/24/2023 Active Zomig 2.5 MG 1 tablet as needed o ne time Nasally Once a day for 10 days 05/24/2013 Not-Taking IMMUNIZATIONS Vaccine Route Administration Date Status Comme nts Flu Vaccine Unknown 12/29/2012 Administered At work. Fluarix Quadrivalent Unknown 01/17/2014 Administered [facility] Flu Vaccine IM Intramuscular 01/03/2016 Administered pt wa s given the vaccine at her [facility]'s place of work. Flu Vaccine Unknown 01/23/2017 Administered pt was give n the vaccine at work. TDaP IM Intramuscular 11/18/2017 Administered pt was given the vaccine at [facility] in [place]. Tetanus Unknown 11/18/2017 Administered Flu Vaccine IM Intramuscular 01/22/2018 Administered Pt wa s given the vaccine at work @ [facility] [place] Fluarix Quadrivalent Unknown 01/09/2020 Administered SAt work [facility] [place] Covid Vaccine Unknown 03/27/2020 Administered [facility] [place] Covid Vaccine Unknown 04/19/2020 Administered [facility] [place] SARS-COV-2 Pfizer Unknown 01/14/2021 Administered [employer] Fluarix Quadrivalent Unknown 01/10/2021 Administered Flu Vaccine Unknown 01/17/2014 Pending SOCIAL HISTORY Tobacco Use: Social History Observation Description Date Details (start date - stop date) Never Smoker NA - NA Sex Assigned At : Social History Observation Description Sex Assigned At Unknown Tobacco Use/Smoking Question Answer Notes Patient is a nonsmoker Additional Findings: Tobacco Non-User Cu rrent non-smoker, currently using no form of tobacco Alcohol Screen Question Answer Notes Did you have a drink contain ing alcohol in the past year? Yes How often did you have a dri nk containing alcohol in the past year? Monthly or less (1 point) How many drinks did you have on a typical day when you were drinking in the past year? 1 or 2 drinks (0 point) How often did you have 6 or more drinks on one occasion in the past year? Never (0 point) Points 1 Interpretation Negative PROBLEMS Problem Type ICD Code Onset Dates Problem Status W/U Status Risk SNOMED Code Notes Problem Lymphocytosis (D72.820) Active confirmed 97298143 Problem Reflux esophagitis (K21.00) Active confirmed 730919240 Problem Vitamin D deficiency (E55.9) Active confirmed 99056471 Problem Osteopenia (M85.80) Active confirmed 626959175 Problem Essential hypertension (I10) Active confirmed 27506567 Problem Postoperative hypothyroidism (E89.0) Active confirmed 33746136 Problem Oropharyngeal dysphagia (R13.12) Active confirmed 99534121 Problem Sciatica of right side (M54.31) Active confirmed 33616803 Problem Mild intermittent asthmatic bronchitis with acute exacerbation (J45.21) Active confirmed 371754612 Problem Hypothyroidism (acquired) (E03.9) Active confirmed Hypothyroidism (51867004) Problem Lumbar discitis (M46.46) Active confirmed 084806748 VITAL SIGNS Blood pressure diastolic 82 mm Hg 12/24/2023 Height 64.25 in 12/24/2023 Blood pressure systolic 146 mm Hg 12/24/2023 Weight 150 lbs 12/24/2023 BMI 25.54 kg/m2 12/24/2023 Encounters Encounter Location Date Provider Diagnosis Billy Cope MD [address] [place], [place] [id number] 08/14/2023 Billy Cope Microscopic hematuri a R31.29 ; Annual physical exam Z00.00 ; Hypothyroidism (acquired) E03.9 ; Essential hypertension I10 and Depression screening Z13.31 Billy Cope MD [address] [place] [id number] 08/07/2023 Billy Cope Blood tests for routine general physical examination Z00.00 ; Essential hypertension I10 ; Lymphocytosis D72.820 ; Vitamin D deficiency E55.9 and Hypothyroidism (acquired) E03.9 Billy Cope MD [address] [place] [id number] 12/24/2023 Billy Cope Lumbar discitis M46. 46 Billy Cope MD [address] [place] [id number] 01/19/2023 Billy Cope Mild intermittent asthmatic bronchitis with acute exacerbation J45.21 Billy Cope MD [address] [place] [id number] 08/07/2023 Billy Cope [address] [place] [id number] 08/10/2023 Billy Cope MD [address] [place] [id number] 11/23/2023 Billy Cope Shrimp allergy Z91.0 13 ASSESSMENTS Encounter Date Diagnosis Assessment Notes Treatment Notes Treatment Clinical Notes 08/14/2023 Annual physical exam (ICD-10 - Z00.00) labs reviewed and discussed with patient 08/14/2023 Microscopic hematuria (ICD-10 - R31.29) i feel with family history bladder cancer should get cysto at least every 5 years/ JAZZMINE IS A PATIENT OF DR RODRIGES AT [facility] [place] [place] [facility] , SHE WILL CALL TO DISCUSS WITH HIM 08/07/2023 Blood tests for routine general physical examination (ICD-10 - Z00.00) 12/24/2023 Lumbar discitis (ICD-10 - M46.46) needs STAT with reading.. if not getting worse to go to the hospital . does not want to go at present/ patient will be going to [facility] [place] [place] ER/ CALLED ER AND OFFICE NOTE FAXED 01/19/2023 Mild intermittent asthmatic bronchitis with acute exacerbation (ICD-10 - J45.21) Patient/Caregiver verbalizes understanding of medications side effects, interactions and warnings. 11/23/2023 Shrimp allergy (ICD-10 - Z91.013) 08/14/2023 Hypothyroidism (acquired) (ICD-10 - E03.9) doing well, will continue current regiment 08/07/2023 Essential hypertension (ICD-10 - I10) 08/14/2023 Essential hypertension (ICD-10 - I10) stable, will continue to monitor 08/07/2023 Lymphocytosis (ICD-10 - D72.820) 08/14/2023 Depression screening (ICD-10 - Z13.31) negative screen 08/07/2023 Vitamin D deficiency (ICD-10 - E55.9) 08/07/2023 Hypothyroidism (acquired) (ICD-10 - E03.9) PLAN OF TREATMENT Pending Test Test Name Order Date Electrocardiogram (EKG) 04/30/2017 Electrocardiogram (EKG) 05/13/2018 Electrocardiogram (EKG) 05/20/2019 PAP SMEAR (THIN PREP) 09/29/2014 BONE DENSITY DEXA 06/01/2020 MR lumbar spine wo/w con 12/24/2023 Future Test Test Name Order Date BONE DENSITY DEXA 06/08/2021 Next Appt Details Provider Name:Billy hanna, 12/25/2023 11:45:00 AM, [address] [place] [address], [phone], Provider Name:Billy hanna, 02/11/2024 03:00:00 PM, [address] [place] [address], [phone], Provider Name:Billy ahnna, 08/11/2024 07:15:00 AM, [address] [place] [address], [phone], Provider Name:Billy hanna, 08/18/2024 02:30:00 PM, [address] [place] [address], [phone], Insurance Providers Payer Name Payer Address Payer Phone Subscriber Number Group Number Insured Name Patient Relationship to Insured Coverage Start Date Coverage End Date [employer] [address] [place], [place] [id number] Jazzmine Holbrook Self - patient is the insured MEDICAL (GENERAL) HISTORY Medical History History ICD Code 10/2008 - Cysto, Cysto again 07/2018 Nega tive work up with Dr Gonsales ADOLESCENT SPECIALIST, [facility]DENH[facility], ap pt 09/02/13 Colonoscopy done 06/10/[address] Che - repeat 10 years Surgical History Surgery Date(Month/Year) thyroidectomy, subtotal 2006
--- OUTSIDE RECORDS SUMMARY | 2023-12-24 11:50 | XMS_ITS ---
Author Organization Billy Cope MD Address [address] [place] [phone] Care Team Providers Care Electric Organ Checker Name Role Phone Billy Cope Primary Care Provider ALLERGIES Allergen (clinical drug ingredient) Drug/Non Drug Allergy documented on EMR Reaction Allergy Type Onset Date Status Levaquin tendon inflammation Drug Allergy Active diphenhydramine Benadryl hives Drug Allergy A ctive sulfamethoxazole / trimethoprim Bactrim (uncoded) rash Allergy Active REASON FOR VISIT ANNUAL EXAM, No Covid symptoms MEDICATIONS Medication SIG (Take, Route, Frequency, Duration) Notes Start Date End Date Status Singulair 10 MG 1 tablet Orally Once a day for 30 day(s) Active Levothyroxine Sodium 75 MCG TAKE ONE TABLET BY MOUTH EVERY DAY IN THE MORNING ON AN EMPTY STOMACH Active Zomig 2.5 MG 1 tablet as needed o ne time Nasally Once a day for 10 days 05/24/2013 Not-Taking Vitamin B6 50 MG 1 tablet Orally for 30 day(s) Not-Taking Albuterol Sulfate HFA 108 (90 Base) MCG/ACT 1 puff as needed Inhalation every 4 hrs for 30 days 01/19/2023 Active EpiPen 2-Tyson 0.3 MG/0.3ML as directed In jection daily for 1 dose 01/31/2013 Not-Taking SOCIAL HISTORY Tobacco Use: Social History Observation [...] Never (0 point) Points 1 Interpretation Negative VITAL SIGNS BMI 25.54 kg/m2 08/14/2023 Blood pressure systolic 124 mm Hg 08/14/19 24 Blood pressure diastolic 76 mm Hg 024 Height 64.25 in 08/14/2023 Weight 150 lbs 08/14/2023 weight is up 5 pounds since 01-19-23 Encounters Encounter Location Date Provider Diagnosis Billy Cope MD [address] [place] [address] [address] [place], [place] [id number] 08/14/2023 Billy Cope Microscopic hematuri a R31.29 ; Annual physical exam Z00.00 ; Hypothyroidism (acquired) E03.9 ; Essential hypertension I10 and Depression screening Z13.31 ASSESSMENTS Encounter Date Diagnosis Assessment Notes Treatment Notes Treatment Clinical Notes 08/14/2023 Microscopic hematuri a (ICD-10 - R31.29) i feel with family history bladder cancer should get cysto at least every 5 years/ JAZZMINE IS A PATIENT OF DR FAROOQ AT [facility] [place] [facility] , SHE WILL CALL TO DISCUSS WITH HIM 08/14/2023 Annual physical exam (ICD-10 - Z00.00) labs reviewed and discussed with patient 08/14/2023 Hypothyroidism (acquired) (ICD-10 - E03.9) doing well, will continue current regiment 08/14/2023 Essential hypertension (ICD-10 - I10) stable, will continue to monitor 08/14/2023 Depression screening (ICD-10 - Z13.31) negative screen PLAN OF TREATMENT Medication Medication Name Sig Start Date Stop Date Notes Levothyroxine Sodium 75 MCG TAKE ONE TAB LET BY MOUTH EVERY DAY IN THE MORNING ON AN EMPTY STOMACH Treatment Notes Assessment Notes Microscopic hematuria i feel with family history bladder cancer should get cysto at least every 5 years/ JAZZMINE IS A PATIENT OF DR FAROOQ AT [facility] [place] [facility] , SHE WILL CALL TO DISCUSS WITH HIM Annual physical exam labs reviewed and d iscussed with patient Hypothyroidism (acquired) doing well, wi ll continue current regiment Essential hypertension stable, will cont inue to monitor Depression screening negative screen Next Appt Details Follow Up: 6 Months, Reason: bp Provider Name:Billy Harp jacques, 12/25/2023 11:45:00 AM, [address] [place] [address], Suite [facility], [place], [place], [phone], Provider Name:Billy Frankhuseyin hanna, 02/11/2024 03:00:00 PM, [address] [place] [address], Suite [facility], [place], [place], [phone], Provider Name:Billy Frankhuseyin hanna, 08/11/2024 07:15:00 AM, [address] [place] [address], [address], [phone], Provider Name:Billy Harp jacques, 08/18/2024 02:30:00 PM, [address] [place] [address], [address], [phone], Progress Notes * Examination Category Sub-Category Detail Notes General Examination GENERAL APPEARANCE: well dev eloped, well nourished, in no acute distress HEAD: normocephalic, atrau matic EYES: pupils equal, round, reactive to light and accommodation, sclera non- icteric EARS: normal THROAT: clear NECK/THYROID: neck supple, full ra nge of motion, no cervical lymphadenopathy, no bruits HEART: regular rate and rhy thm, S1, S2 normal, no murmurs LUNGS: clear to auscultatio n bilaterally ABDOMEN: soft, nontender, non distended, bowel sounds present, normal, no organomegaly , no masses palpable NEUROLOGIC: nonfocal, motor stre ngth normal upper and lower extremities, sensory exam intact SKIN: warm and dry, no socorro picious lesions EXTREMITIES: no clubbing, cyanosi s, or edema BREASTS: done by airline flight attendant RECTAL EXAM: done by airline flight attendant FEMALE GENITOURINARY: done by airline flight attendant ORAL CAVITY: mucosa moist History and Physical Notes * HPI (History of Present Illness) Category Sub-Category Detail Notes Depression Screening PHQ-9 Little inte rest or pleasure in doing things: Not at all Feeling down, depressed, or hopeless: No t at all Trouble falling or staying asleep, or sl eeping too much: Not at all Feeling tired or having little energy: N ot at all Poor appetite or overeating: Not at all Feeling bad about yourself o r that you are a failure, or have let yourself or your family down: Not at all Trouble concentrating on thi ngs, such as reading the newspaper or watching television: Not at all Moving or speaking so slowly that other people could have noticed; or the opposite, being so fidgety or restless that you have been moving around a lot more than usual: Not at all Thoughts that you would be b demetrio off or of hurting yourself in some way: Not at all Total Score: 0 Interpretation and Intervention Depression Haris terrazas Findings: Negative Follow-Up for Depression: : review of PH Q-9 found negative result, no follow-up needed SDOH Questions SDOH Questions In the past year have you been worried about losing housing?: No In the past year have you or any family members you live with been unable to get any of the following when it was really needed? Check all that apply:: None Communication Needs Communication Needs Does the patient have a hearing impairment: No Does the patient have a vision impairmen t?: Yes ?If yes, what is the vision impairment?: Other Does the patient have a cognition impair ment?: No
--- OUTSIDE RECORDS SUMMARY | 2023-12-24 11:50 | XMS_ITS ---
Author Organization Billy Cope MD Address [address] [place] [phone] Care Team Providers Care Chairlift Operator Name Role Phone Billy Cope Primary Care Provider ALLERGIES Allergen (clinical drug ingredient) Drug/Non Drug Allergy documented on EMR Reaction Allergy Type Onset Date Status Levaquin tendon inflammation Drug Allergy Active diphenhydramine Benadryl hives Drug Allergy A ctive sulfamethoxazole / trimethoprim Bactrim (uncoded) rash Allergy Active REASON FOR VISIT l side pain, in [place] woke up one morning and could not get out of bed high temp, c/0 left hip, flank and toes burning and numbness, UTI and kidney stone, Tested for Covid this AM negative MEDICATIONS Medication SIG (Take, Route, Frequency, Duration) Notes Start Date End Date Status Levothyroxine Sodium 75 MCG TAKE ONE TABLET BY MOUTH EVERY DAY IN THE MORNING ON AN EMPTY STOMACH Active EpiPen 2-Tyson 0.3 MG/0.3ML as directed In jection daily for 1 dose 01/31/2013 Active Vitamin B6 50 MG 1 tablet Orally for 30 day(s) Not-Taking Acetaminophen-Codeine 300-30 MG 1 tablet as needed Orally every 6 hrs for 7 days 12/24/2023 Active Zomig 2.5 MG 1 tablet as needed o ne time Nasally Once a day for 10 days 05/24/2013 Not-Taking Singulair 10 MG 1 tablet Orally Once [...] nce a day for 30 day(s) Not-Taking PROBLEMS Problem Type ICD Code Onset Dates Problem Status W/U Status Risk SNOMED Code Notes Problem Lumbar discitis (M46.46) Active confirmed [id number] VITAL SIGNS BMI 25.54 kg/m2 12/24/2023 Blood pressure systolic 146 mm Hg 12/24/19 24 Blood pressure diastolic 82 mm Hg 024 Height 64.25 in 12/24/2023 Weight 150 lbs 12/24/2023 Encounters Encounter Location Date Provider Diagnosis Billy Cope MD [address] [place] [address] [place] [phone] 12/24/2023 Billy Cope Lumbar discitis M46.46 ASSESSMENTS Encounter Date Diagnosis Assessment Notes Treatment Notes Treatment Clinical Notes 12/24/2023 Lumbar discitis (ICD-10 - M46.46) needs STAT with reading.. if not getting worse to go to the hospital . does not want to go at present/ patient will be going to [facility] ER/ DR CALLED ER AND OFFICE NOTE FAXED PLAN OF TREATMENT Medication Medication Name Sig Start Date Stop Date Notes Acetaminophen-Codeine 300-30 MG 1 tablet as needed Orally every 6 hrs for 7 days 12/24/2023 Treatment Notes Assessment Notes Lumbar discitis needs STAT with read ing.. if not getting worse to go to the hospital . does not want to go at present/ patient will be going to [facility] ER/ DR CALLED ER AND OFFICE NOTE FAXED Pending Test Test Name Order Date MR lumbar spine wo/w con 12/24/2023 Next Appt Details Follow Up: tomorrow, Reason: Provider Name:Billy hanna, 12/25/2023 11:45:00 AM, [address] [place] [address], Suite [facility], [place], [place], [phone], Provider Name:Billy hanna, 02/11/2024 03:00:00 PM, [address] [place] [address], [address] [place] [address], [phone], Provider Name:Billy hanna, 08/11/2024 07:15:00 AM, [address], [address], [place], [place], [phone], Provider Name:Billy hanna, 08/18/2024 02:30:00 PM, [address], [address], [place], [phone], Progress Notes * Examination Category Sub-Category Detail Notes General Examination GENERAL APPEARANCE: abnormal in obvioius distress HEAD: normocephalic HEART: no murmurs, rubs, ga llops, regular rate and rhythm LUNGS: clear to auscultatio n bilaterally NEUROLOGIC: abnormal hyperreflex ia of both legs and positive pain in left flank with elevatino of leg to 20 degres SKIN: good turgor EXTREMITIES: no pain in legs. has some pain in left flank and little pain over spine
--- OUTSIDE RECORDS SUMMARY | 2023-12-24 11:50 | XMS_ITS ---
Author Organization Billy Cope MD Address [address] [place] [phone] Care Team Providers Care Law Office Receptionist Name Role Phone Billy Cope Primary Care Provider [phone] REASON FOR VISIT New Refill Request MEDICATIONS Medication SIG (Take, Route, Frequency, Duration) Notes Start Date End Date Status EpiPen 2-Tyson 0.3 MG/0.3ML as directed In jection daily for 1 dose 01/31/2013 Active Encounters Encounter Location Date Provider Diagnosis Billy Cope MD [address] [place] [phone] 11/23/2023 Billy Cope Shrimp allergy Z91.013 ASSESSMENTS Encounter Date Diagnosis Assessment Notes Treatment Notes Treatment Clinical Notes 11/23/2023 Shrimp allergy (ICD-10 - Z91.013) PLAN OF TREATMENT Medication Medication Name Sig Start Date Stop Date Notes EpiPen 2-Tyson 0.3 MG/0.3ML as directed In jection daily for 1 dose 01/31/2013 Next Appt Details Provider Name:Billy hanna, 12/25/2023 11:45:00 AM, [address] [place] [address], [address], [phone], Provider Name:Billy hanna, 02/11/2024 03:00:00 PM, [address] [place] [address], [address], [phone], Provider Name:Billy hanna, 08/11/2024 07:15:00 AM, [address] [place] [address], [address], [phone], Provider Name:Billy hanna, 08/18/2024 02:30:00 PM, [address], [address], [place], [phone],
[2023-12-24] MEDS: Morphine Sulfate 4 MG/ML CARTRIDGE IVPUSH (11:51)
[2023-12-24] MEDS: ondansetron HCL 4 MG/2 ML VIAL IVPUSH (11:51)
[2023-12-24] MEDS: 0.9 % Sodium Chloride 1,000 ML 999 ML IV (11:52)
--- NOTE | 2023-12-24 11:55 | PC.NURSE ---
pt a&ox3, iv inserted, labs previously drawn, pt medicated for lt flank and lle pain 7-10/10 pain dependent on movement, family at bedside, US tech at bedside, call shepard within reach, will continue to monitor
[2023-12-24 12:16] LABS: Erythrocyte Sedimentation Rate 51 MM/HR (0-20)
--- NOTE | 2023-12-24 12:31 | PC.NURSE ---
pt to CT scan
[2023-12-24 13:06] VITALS: BP 154/79; PULSE 74; RESP 16; TEMP 36.6; O2SAT 98
--- NOTE | 2023-12-24 13:07 | PC.NURSE ---
urine obtained vss
[2023-12-24 13:21] LABS: Appearance Urine Clear; Color Urine Yellow; Glucose Urine UA Negative (Negative); Leukocyte Esterase Urine Trace (Negative); Nitrite Urine Negative (Negative); UMIC TRIGGER UACC YES; Urine Blood Small (1+) (Negative); Urine Ketones 15 mg/dL (Negative); Urine Protein Negative (Neg-Trace)
[2023-12-24 13:22] LABS: Bacteria Urine None Seen (None Seen); Hyaline Casts Urine 0-2 /LPF (0-2); Squamous Epithelial Cell Urine 0-2 /HPF (0-2); WBC Urine 0-5 /HPF (0-5)
[2023-12-24] MEDS: Ketorolac Tromethamine 15 MG/ML VIAL IVPUSH (13:44)
--- NOTE | 2023-12-24 13:46 | PC.NURSE ---
pts came to hallway asking for assistance, this nurse went into pts room where she was tearful stating her pain jumped from manageable to 10/10. provider was notified, new order placed and patient was medicated for pain
[2023-12-24 14:09] LABS: Adenovirus PCR Not Detected (Not Detect.); Bordetella parapertussis PCR Not Detected (Not Detect.); Bordetella pertussis PCR Not Detected (Not Detect.); Chlamydia pneumoniae PCR Not Detected (Not Detect.); Coronavirus 229E PCR Not Detected (Not Detect.); Coronavirus HKU1 PCR Not Detected (Not Detect.); Coronavirus NL63 PCR Not Detected (Not Detect.); Coronavirus OC43 PCR Not Detected (Not Detect.); Human metapneumovirus PCR Not Detected (Not Detect.); Influenza A PCR Not Detected (Not Detect.); Influenza B PCR Not Detected (Not Detect.); Mycoplasma pneumoniae PCR Not Detected (Not Detect.); Parainfluenza 1 PCR Not Detected (Not Detect.); Parainfluenza 2 PCR Not Detected (Not Detect.); Parainfluenza 3 PCR Not Detected (Not Detect.); Parainfluenza 4 PCR Not Detected (Not Detect.); RSV PCR Not Detected (Not Detect.); Rhino/Enterovirus PCR Not Detected (Not Detect.)
[2023-12-24 14:12] LABS: SARS-CoV-2 PCR Not Detected (Not Detect.)
[2023-12-24 16:25] VITALS: BP 115/60; PULSE 67; RESP 16; TEMP 37.1; O2SAT 97
[2023-12-24 17:24] VITALS: BP 120/66; PULSE 68; RESP 18; TEMP 36.7; O2SAT 98
== END 2023-12-24 17:24 | disposition home or self-care (01) ==
PROVIDERS: Emergency Provider Emergency Medicine
DX: N23 Unspecified renal colic (principal); M54.32 Sciatica, left side; N20.0 Calculus of kidney; M79.662 Pain in left lower leg; Z03.818 Encounter for observation for suspected exposure to other biological agents ruled out; Z87.442 Personal history of urinary calculi
CPT/HCPCS: 0241U; 74176; 80053; 81001; 85025; 85652; 86140; 87633; 93971; 96361; 96374; 96375; 99285; J1885; J2270; J2405

== ENCOUNTER 2024-01-01 08:52 | Outpatient (AMB) | payer BC, SELFPAY ==
--- NOTE | 2024-01-01 09:03 | MHC.OFFVIS ---
Intake Visit Reasons: [facility] [place]/US/Cysto possible Intake Note: Patient is present for [facility]/6M/US/CYSTO POSSIBLE Urology Medication:VITAMIN B6,TAMSULOSIN Antibiotic Allergy:SULFA,BACTRIM, Blood Thinner:NONE Mat Maker Required: No Allergies shrimp Allergy (Severe, Verified 01/01/24 09:04) HIVES/VOMITING latex [Latex] Allergy (Intermediate, Verified 01/01/24 09:04) RASH sulfamethoxazole [From BACTRIM] Allergy (Intermediate, Verified 01/01/24 09:04) HIVES trimethoprim [From BACTRIM] Allergy (Intermediate, Verified 01/01/24 09:04) HIVES Sulfa (Sulfonamide Antibiotics) Allergy (Unknown, Verified 01/01/24 09:04) hives From Benadryl Allergy (Severe, Uncoded 01/01/24 09:04) HIVES/SWELLING Benadryl Allergy (Unknown, Uncoded 01/01/24 09:04) rash Latex Gloves Allergy (Unknown, Uncoded 01/01/24 09:04) rash HPI Comments Details: Jazzmine is a pleasant female. She is a patient of Dr. Cope. is seen for the following urologic conditions - microscopic hematuria - nephrolithiasis Persistent microscopic hematuria CT shows small stone left side stable UA positive Has current hip issues and is uncertain she could be in lithotomy position Defer cystoscopy six-month Nephrolithiasis Initial presentation with microscopic hematuria Imaging - 09/24 renal ultrasound 2 mm left-sided stone - 05/28 renal ultrasound 2 mm left-sided stone stable - 04/28 renal ultrasound 2 small stones left side - 05/30 renal ultrasound no stones seen - 11/27 CT scan small stone left side stable Occasional flank pain but otherwise stable Therapeutic plan [facility] Medical History Hematuria OA (osteoarthritis) Thyroid disease Uterine fibroid H/O urinary retention Multiple renal calculi Surgical History History of surgery Social History Advance Directives Date on File: 01/10/20 Review of Systems Const Denies chills and Denies fever(s) Card Reports no additional complaints and Denies syncope Resp Denies cough GI Denies abdominal pain and Denies heartburn Reports as per HPI and Denies change in libido Neuro Denies syncope Psych Denies change in libido Endo Denies change in libido Physical Exam Const General: cooperative, healthy appearing, comfortable and no acute distress Orientation/consciousness: patient oriented x3 HEENT Face and sinus: Yes normal facial exam Mouth: moist mucous membranes Neck Neck: Yes normal visual inspection, Yes full ROM and Yes trachea midline Chest Chest palpation & inspection: normal inspection of the chest Resp Effort & Inspection: normal respiratory effort, able to speak in complete sentences and no respiratory distress GI Inspection: Yes normal to inspection Back/Spine/Pelvis Cervical Spine: normal cervical lordosis Thoracic/Lumbar Spine: thoracic and lumbar spine normal to inspection Skin General skin exam: no rashes or lesions noted Neuro General: patient oriented x3, gait normal, tone normal and moves all extremities Extrem General: Yes normal to inspection and Yes capillary refill normal Results AMB Urinalysis, Automated UA Leukoctes 125 Evelina/uL Last Edit by DANIELLE Lilly on 01/01/24 09:20 UA Nitrite Negative Last Edit by DANIELLE Lilly on 01/01/24 09:20 UA Urobilinogen 0.2 mg/dL Last Edit by DANIELLE Lilly on 01/01/24 09:20 UA Protein 0 mg/dL Last Edit by DANIELLE Lilly on 01/01/24 09:20 UA pH 5.0 Last Edit by DANIELLE Lilly on 01/01/24 09:20 UA Blood 200 Tate/uL Last Edit by DANIELLE Lilly on 01/01/24 09:20 UA Specific [place] 1.020 Last Edit by DANIELLE Lilly on 01/01/24 09:20 UA Ketone Negative Last Edit by DANIELLE Lilly on 01/01/24 09:20 UA Bilirubin 0 mg/dL Last Edit by DANIELLE Lilly on 01/01/24 09:20 UA Glucose 0 mg/dL Last Edit by DANIELLE Lilly on 01/01/24 09:20 Assessment & Plan Assessment & Plan (1) Renal stones: Code(s): N20.0 - Calculus of kidney Category: Medical Plan Six-month follow-up cysto Patient Instructions: Imaging studies, laboratory and physical exam results were discussed and reviewed in detail. No major barriers to patient understanding were identified. An opportunity to ask questions regarding the treatment plan was provided. All questions were answered. The patient expressed understanding and agreement with the above treatment plan. The patient is aware they should contact our office by phone for worsening of their current condition or the appearance of new urologic symptoms. Compliance is encouraged with any medications and followup testing that is ordered. It is a privilege to participate in the urologic care of your patient. If you have any questions or concerns regarding treatment for the above conditions, or other urologic issues, please do not hesitate to contact me. The office telephone contact is [phone]. This note is constructed using voice recognition software. While every effort has been made to ensure accuracy bioinformatics software engineer errors may have been included. Yours sincerely, Dr Amrit Rodriges MD, [facility] - Urology Providers of Expert, Compassionate Care for the Genitourinary System Coding Level of Care Code Est Pt Level 3 (79047) Diagnoses Renal stones N20.0
== END 2024-01-01 09:31 | disposition home or self-care (01) ==
PROVIDERS: PCP Internal Medicine; Visit Provider Urology
DX: Z13.9 Encounter for screening, unspecified (principal); N20.0 Calculus of kidney
CPT/HCPCS: 99213

== ENCOUNTER → 2024-01-01 08:52 | Outpatient (BNVA) | payer BC, SELFPAY | PROVIDERS: PCP Internal Medicine; Visit Provider Urology | DX: N20.0 Calculus of kidney (principal) | CPT/HCPCS: 81003 ==

== ENCOUNTER 2024-08-16 10:33 | Outpatient (REF) | payer BC, SELFPAY ==
[2024-08-16 10:38] LABS: MANUAL DIFF FLAG NO
[2024-08-16 11:04] LABS: Appearance Urine Clear; Basophils Percent Auto 0.7 % (0-2); Color Urine Yellow; Eosinophils Absolute Auto 0.1 X10*3/uL (0.0-0.4); Eosinophils Percent Auto 1.1 % (0-4); Glucose Urine UA Negative (Negative); Hemoglobin 12.4 g/dl (12.0-16.0); Imm Gran Abs Auto 0.01 X10*3/uL (0.00-0.03); Imm Gran Pct Auto 0.2 % (0.0-0.4); Leukocyte Esterase Urine Small (1+) (Negative); Lymphocytes Absolute Auto 1.8 X10*3/uL (1.2-4.9); Lymphocytes Percent Auto 38.6 % (20-40); Mean Corpuscular HGB Conc 34.4 g/dl (31.0-35.0); Mean Corpuscular Hemoglobin 31.8 pg (27.0-33.0); Mean Corpuscular Volume 92.3 fL (80.0-98.0); Mean Platelet Volume 9.7 fL (9.4-12.3); Monocytes Absolute Auto 0.5 X10*3/uL (0.1-1.2); Monocytes Percent Auto 10.3 % (2-11); Neutrophils Absolute Auto 2.2 x10*3/uL (2.0-8.3); Neutrophils Percent Auto 49.1 % (45-73); Nitrite Urine Negative (Negative); PH 6.5 (5.0-9.0); Platelet Count 328 X10*3/uL (160-400); Red Cell Distribution Width 13.4 % (11.0-16.0); UMIC TRIGGER UACC YES; Urine Blood Small (1+) (Negative); Urine Ketones Negative (Negative); Urine Protein Negative (Neg-Trace); White Blood Count 4.6 X10*3/uL (4.8-10.8)
[2024-08-16 11:11] LABS: Bacteria Urine None Seen (None Seen); Hyaline Casts Urine 0-2 /LPF (0-2); RBC Urine >20 /HPF (0-2); Squamous Epithelial Cell Urine 0-2 /HPF (0-2); UACC Culture Trigger YES
--- OUTSIDE RECORDS SUMMARY | 2024-08-16 11:45 | XMS_ITS ---
Author Organization Billy Cope MD Address [address] [place] [phone] Care Team Providers Care Zoology Teacher Name Role Phone Billy Cope Primary Care Provider REASON FOR VISIT Latest update Encounters Encounter Location Date Provider Diagnosis Billy Cope MD [address] [place], [place] [phone] 07/11/2024 Billy Cope Plan Of Treatment Next Appt Details Provider Name:Billy Harp ier, 08/18/2024 09:30:00 AM, [address], [address], [place], [place], [phone], Progress Notes * Carlos HOLBROOKOB:1965 (59 yo F)Acc No.[id number]:07/11/2024 Patient:?Jazzmine HOLBROOK :1965???Age:59 Y???Sex:Female Address:[address] [place] [address] * * Date:?
--- OUTSIDE RECORDS SUMMARY | 2024-08-16 11:45 | XMS_ITS | Clinical Summary ---
Author Organization [facility] Address [address] [place] [phone] Phone Care Team Providers Care Job Press Operator Name Role Phone Billy Cope MD Primary Care Provider Allergies Active Allergy Reactions Criticality Noted Date Comments Celecoxib Rash Low 05/11/2024 Diphenhydramine Hcl Hives,Syncope High 05/11/2024 Latex Hives,Itching,Rash Low 05/11/2024 Levofloxacin Tendonitis High 05/11/2024 Sulfamethoxazole-Trimethoprim Hives,Rash Low 2024 Medications albuterol 90 mcg/actuation inhaler Inhale 2 puffs into the lungs every 6 (six) hours as needed. 01/19/2023 Active levothyroxine (SYNTHROID, LEVOTHROID) 75 MCG tablet Take 75 mcg by mouth every morning. 09/04/2006 Active valACYclovir (VALTREX) 500 MG tablet Take 1 tablet by mouth every morning. 02/22/2024 Active acetaminophen (TYLENOL) 325 mg tablet Take 1,000 mg by mouth 2 (two) times a day. 03/17/2024 Active Social History Tobacco Use Types Packs/Day Years Used Date Smoking Tobacco: Never Assessed Education Answer Date Recorded Are you interested in more education? Not on robert e 04/29/2024 Are you concerned about learning? Not on file 04/29/2024 No 04/29/2024 No 04/29/2024 Digital Access Answer Date Recorded No 04/29/2024 No 04/29/2024 Reliable internet access at home? Not on file 04/29/2024 Device with a working camera? Not on file Comments Unknown Sex and Gender Information Value Date Recorded Sex Assigned at Female 04/18/2024 3:10 PM EST Legal Sex Female 3:05 PM EST Gender Identity Female 04/18/2024 3:10 PM EST Sexual Orientation Straight 04/18/2024 3: 10 PM EST Last Filed Vital Signs Vital Sign Reading Time Taken Comments Blood Pressure 147/90 05/11/2024 12:50 PM EST Pulse 74 05/11/2024 12:50 PM EST Temperature 36 ??C (96.8 ??F) 05/11/2024 12:50 PM EST Respiratory Rate - - Oxygen Saturation 99% 05/11/2024 12:50 PM EST Inhaled Oxygen Concentration - - Weight 70.3 kg (155 lb) 05/11/2024 12:50 PM EST Height - - Body Mass Index - - Plan of Treatment Health Maintenance Due Date Last Done Comments LIPID PANEL 1965 TSH LEVEL 1965 DEPRESSION SCREENING 1977 SMOKING Hx and SMOKELESS TOBACCO SCREENING 1978 HEPATITIS C SCREENING 1983 HIV ONE-TIME SCREENING (18-65 YEARS) 1983 PAP SMEAR 1986 MAMMOGRAM 2005 COLOGUARD 2010 COLONOSCOPY 2010 COLORECTAL CANCER SCREENING 2010 FIT TEST 2010 FOBT 2010 SIGMOIDOSCOPY 2010 VIRTUAL COLONOSCOPY 2010 PNEUMOCOCCAL VACCINES (50+ years) (1 of 1 - PCV) 2015 ZOSTER VACCINES (1 of 2) 2015 COVID-19 VACCINE ( season) 2023 01/24/2023, 10/21/2021, 01/14/2021, Additional history exists Adult Td,Tdap Booster 11/19/2027 11/18/2017 HEPATITIS A VACCINES Aged Out No long er eligible based on patient's age to complete this topic HIB VACCINES Aged Out No longer eligi ble based on patient's age to complete this topic MENINGOCOCCAL VACCINES (ACWY) Aged Out No longer eligible based on patient's age to complete this topic Medical Devices Not on file Procedures Procedure Name Priority Date/Time Associated Diagnosis Comments OUTSIDE IMAGING 05/26/2024 from Last 3 Months Results * Outside Imaging Report Only (05/26/2024) us Scanning Interface Provider IMG XR CHEST Ashley l Result from Last 3 Months Insurance [facility] PPO EPO [facility] PPO EPO [facility] PPO EPO [facility] PPO [facility]PO [facility] PPO EPO [facility] PPO EPO Care Teams Job Press Operator Relationship Specialty Start Date End Date Billy Cope MD [address] [place] [address] [place] [address] PCP - General Internal Medicine 04/18/24 Additional Source Comments The information contained in this document represents components of the legal health record. It is not the complete legal health record.[facility]
--- OUTSIDE RECORDS SUMMARY | 2024-08-16 11:45 | XMS_ITS | Clinical Summary ---
Author Organization [facility] Address [address] [place] [address] Care Team Providers Care Drafter Structural Name Role Phone Pcp, No Primary Care Provider Unavailabl e Encounters Date Type Department Care Team Description 07/18/2024 2:20 PM EDT Ancillary Procedure Orthopedic [address] [phone] 07/18/2024 2:00 PM EDT Consult Orthopedic [address] [phone] Gwendolyn Argueta MD Radiculopathy, lumbar region (Primary Dx) 07/18/2024 Orders Only [facility] [address] [phone] Gwendolyn Agrueta MD Radiculopathy, lumbar region (Primary Dx) 07/07/2024 Scanned Document Orth[facility] [address] [phone] Keila Hooper from Last 3 Months Social History Tobacco Use Types Packs/Day Years Used Date Smoking Tobacco: Never Assessed Comments Unknown Sex and Gender Information Value Date Recorded Sex Assigned at Female 07/12/2024 11:31 AM EDT Legal Sex Female 6:56 PM EST Gender Identity Female 07/12/2024 11:31 AM EDT Sexual Orientation Asexual 07/12/2024 11 :31 AM EDT Plan of Treatment Upcoming Encounters Date Type Department Care Team (Late st Contact Info) Description 10/24/2024 1:15 PM EDT Office Visit Orthopedic [address] [phone] Gwendolyn Argueta MD [address] [place] [phone] Health Maintenance Due Date Last Done Comments Hepatitis C Virus Screening 1965 HIV Screening 1978 DTaP/Tdap/Td Vaccines (1 - Tdap) 1984 Hepatitis B Vaccines (1 of 3 - 19+ 3-dose series) 03/06 Pap Smear (Ages 21-65) 1986 Mammogram 2005 Colonoscopy 2010 Pneumococcal Vaccines 50+ (1 of 1 - PCV) 2015 Zoster (Shingles) Vaccine (1 of 2) 2015 COVID-19 Vaccine (1 - 2023- season) 2023 Influenza Vaccine 11/04/2024 01/14/2024 Procedures Procedure Name Priority Date/Time Associated Diagnosis Comments XR LUMBAR SPINE 1 VIEW Routine 07/18/2024 2:23 PM EDT Radiculopathy, lumbar region from Last 3 Months Results * XR Lumbar spine 1 view (07/18/2024 2:23 PM EDT) Narrative OAH - 07/18/2024 2:23 PM EDT This exam was performed in office at [facility] and images reviewed by orthopedic provider. ??Any findings are documented within ambulatory encounter note on date of service. us Gwendolyn Argueta MD IM DIAGNOSTIC IMAGING ORDERABLE S Final Result [facility] from Last 3 Months Insurance [employer] [place] OUT OF STATE - PPO Care Teams Drafter Structural Relationship Specialty Start Date End Date Pcp, No PCP - General General Medicine 07/18/24
--- OUTSIDE RECORDS SUMMARY | 2024-08-16 11:46 | XMS_ITS ---
Author Name [facility] Organization Unknown Problems Problem Status Onset Date Problem Type Date of Resoluti on Source Radiculopathy, lumbar region active EncounterDiagnosisAct CCT Encounters Encounter Type Encounter Reason Primary Diagnosis Location Date Ambulatory [facility] 07/18/2024 Ambulatory Radiculopathy, lumbar region Radiculopathy, lumbar region [facility] 07/18/2024 Care Team Organization Name Specialty Phone Email Start Date End Da te [facility] PCP Mat Puncher 07/21/2024 [facility] NO PCP Primary Care 07/12/2024 [facility] 07/07/2024
--- OUTSIDE RECORDS SUMMARY | 2024-08-16 11:46 | XMS_ITS ---
Author Organization Billy Cope MD Address [address] [facility] [address] [place] [phone] Care Team Providers Care Metalworking Instructor Name Role Phone Billy Cope Primary Care Provider [phone] REASON FOR VISIT New pain Rx recommendation Medications Medication SIG (Take, Route, Fr equency, Duration) Notes Start Date End Date Status Gabapentin 300 MG 1 capsule Orally Onc e a day for 30 day(s) 06/02/2024 Active Encounters Encounter Location Date Provider Diagnosis Billy Cope MD [address] [place] [address] [place] [phone] 06/01/2024 Billy Cope Plan Of Treatment Medication Medication Name Sig Start Date Stop Date Notes Gabapentin 300 MG 1 capsule Orally Onc e a day for 30 day(s) 06/02/2024 Next Appt Details Provider Name:Billy Harp ier, 08/18/2024 09:30:00 AM, [address] [place] [address], Suite [facility], [place], [place], [phone], Progress Notes * Carlos HOLBROOKOB:1965 (59 yo F)Acc No.[id number]:06/01/2024 Patient:?Jazzmine HOLBROOK :1965???Age:59 Y???Sex:Female Address:[address] [place] [address] [place] [address] * Refills? Start Gabapentin Capsule, 300 MG, Orally, 30, 1 capsule, Once a day, 30 day(s) * true * Date:? Generated for Mckenna winchester/Carli/Bennettitting on:?08/16/2024 11:46 AM EDT
--- OUTSIDE RECORDS SUMMARY | 2024-08-16 11:46 | XMS_ITS | Encounter Summary ---
Author Organization [facility] Address [address] [place], [place] [id number] Care Team Providers Care Community Support Professional Name Role Phone Pcp, No Primary Care Provider Unavailabl e Encounter Details Date Type Department Care Team (Late st Contact Info) Description 07/07/2024 Scanned Document Orthopedic [address] [phone] Keila Hooper [address] [place], [place] [address] [address] [place] [address] Social History Tobacco Use Types Packs/Day Years Used Date Smoking Tobacco: Never Assessed Comments Unknown Sex and Gender Information Value Date Recorded Sex Assigned at Female 07/12/2024 11:31 AM EDT Legal Sex Female 6:56 PM EST Gender Identity Female 07/12/2024 11:31 AM EDT Sexual Orientation Asexual 07/12/2024 11 :31 AM EDT documented as of this encounter Plan of Treatment Upcoming Encounters Date Type Department Care Team (Late st Contact Info) Description 10/24/2024 1:15 PM EDT Office Visit Orthopedic [facility] [address] [place] [phone] Gwendolyn Argueta MD [address] [place] [address] documented as of this encounter Visit Diagnoses Not on filedocumented in this encounter Care Teams Community Support Professional Relationship Specialty Start Date End Date Pcp, No PCP - General General Medicine 07/18/24 documented as of this encounter
--- OUTSIDE RECORDS SUMMARY | 2024-08-16 11:46 | XMS_ITS ---
Author Organization Billy Cope MD Address [address] [place], [place] [id number] Care Team Providers Care Residential Treatment Counselor Name Role Phone Billy Cope Primary Care Provider Allergies Allergen (clinical drug ingredient) Drug/Non Drug Allergy documented on EMR Reaction Allergy Type Onset Date Status Levaquin tendon inflammation Drug Allergy Active diphenhydramine Benadryl hives Drug Allergy A ctive sulfamethoxazole / trimethoprim Bactrim (uncoded) rash Allergy Active Results Component Value Reference Range Notes Complete Blood Count Auto Di ff (Not yet reviewed by provider) Interpretation: Performing Lab:[facility], [address] [place] [phone] Notes/Report: White Blood Count 4.6 4.8-10.8 X10*3/uL Red Blood Count 3.90 4.20-5.50 X10*6/uL Hemoglobin 12.4 12.0-16.0 g/dl Hematocrit 36.0 37.0-47.0 % Mean Corpuscular Volume 92.3 80.0-98.0 fL Mean Corpuscular Hemoglobin 31.8 27.0-33.0 pg Mean Corpuscular HGB Conc 34.4 31.0-35.0 g/dl Red Cell Distribution Width 13.4 11.0-16.0 % Platelet Count 328 160-400 X10*3/uL Mean Platelet Volume 9.7 9.4-12.3 fL Neutrophils Percent Auto 49.1 45-73 % Imm Gran Pct Auto 0.2 0.0-0.4 % Lymphocytes Percent Auto 38.6 20-40 % Monocytes Percent Auto 10.3 2-11 % Eosinophils Percent Auto 1.1 0-4 % Basophils Percent Auto 0.7 0-2 % NRBC Pct Auto 0.0 0.0-0.2 /100WBC Neutrophils Absolute Auto 2.2 2.0-8.3 x10*3/u L Imm Gran Abs Auto 0.01 0.00-0.03 X10*3/uL Lymphocytes Absolute Auto 1.8 1.2-4.9 X10*3/u L Monocytes Absolute Auto 0.5 0.1-1.2 X10*3/uL Eosinophils Absolute Auto 0.1 0.0-0.4 X10*3/u L Basophils Absolute Auto 0.0 0.0-0.2 X10*3/uL NRBC Abs Auto 0.000 0.0-0.012 X10*3/uL UA ClnCatch+Micro w/rflx Cul t (Not yet reviewed by provider) Interpretation: Performing Lab:[facility], [address] [place] [phone] Notes/Report: Urine, Clean Catch Color Urine Yellow Appearance Urine Clear PH 6.5 5.0-9.0 Glucose Urine UA Negative Negative mg/dL Urine Blood Small (1+) Negative Specific [place] - Urine 1.020 1.005-1.025 Urine Protein Negative Neg-Trace mg/dL Urine Ketones Negative Negative mg/dL Nitrite Urine Negative Negative Leukocyte Esterase Urine Small (1+) Negative RBC Urine >20 0-2 /HPF WBC Urine 6-10 0-5 /HPF Squamous Epithelial Cell Urine 0-2 0-2 /HPF Bacteria Urine None Seen None Seen Hyaline Casts Urine 0-2 0-2 /LPF REASON FOR VISIT FASTING LABS/ CRP Erythrocyte sedimenatation rate Medications Medication SIG (Take, Route, Frequency, Duration) Notes Start Date End Date Status Tamsulosin HCl 0.4 MG 1 capsule Orally O nce a day for 30 day(s) Unknown Diclofenac Potassium 50 MG 1 tablet with food or milk as needed Orally Twice a day Unknown Zomig 2.5 MG 1 tablet as needed o ne time Nasally Once a day for 10 days 05/24/2013 Unknown Singulair 10 MG 1 tablet Orally Once a day for 30 day(s) Unknown Vitamin B6 50 MG 1 tablet Orally for 30 day(s) Unknown Gabapentin 300 MG 1 capsule Orally Onc e a day for 30 day(s) 06/02/2024 Unknown Levothyroxine Sodium 75 MCG TAKE 1 TABLE T BY MOUTH DAILY IN THE MORNING ON AN EMPTY STOMACH for 90 Unknown traMADol HCl 50 MG 1 tablet as needed Orally twice a day for 10 days 05/30/2024 Unknown Albuterol Sulfate HFA 108 (90 Base) MCG/ACT 1 puff as needed Inhalation every 4 hrs for 30 days 01/19/2023 Unknown EpiPen 2-Tyson 0.3 MG/0.3ML as directed In jection daily for 1 dose 01/31/2013 Unknown Florajen Digestion - as directed Orally Unknown Encounters Encounter Location Date Provider Diagnosis Billy Cope MD [address] [place], [place] [id number] 08/16/2024 Billy Cope Osteomyelitis of spine M46.20 ; Weight gain R63.5 ; Essential hypertension I10 ; Lymphocytosis D72.820 and Annual physical exam Z00.00 Assessments Encounter Date Diagnosis (ICD Code) Assessment Notes Treatment Notes Treatment Clinical Notes Section Notes 08/16/2024 Osteomyelitis of spine (ICD-10 - M46.20) 08/16/2024 Weight gain (ICD-10 - R63.5) 08/16/2024 Essential hypertension (ICD-10 - I10) 08/16/2024 Lymphocytosis (ICD-10 - D72.820) 08/16/2024 Annual physical exam (ICD-10 - Z00.00) Plan Of Treatment Pending Test Test Name Order Date Complete Blood Count Auto Diff Comprehensive Franklin. Panel Fast Lipid Panel with Reflex 08/16/2024 Vitamin D 25-OH Total 08/16/2024 Thyroxine T4 Total 08/16/2024 TSH reflex Free T4 08/16/2024 UA ClnCatch+Micro w/rflx Cult 08/16/2024 CRP 08/16/2024 Erythrocyte Sedimentation Rate Next Appt Details Provider Name:Billy hanna, 08/18/2024 09:30:00 AM, [address], [address], [place], [place], [id number], Progress Notes * Bree HOLBROOK:1965 (59 yo F)Acc No.[id number]:08/16/2024 Progress Note Patient:?Jazzmine HOLBROOK Provider:?Billy Cope MD :1965???Age:59 Y???Sex:Female D ate:08/16/2024 Address:[address] [place] [address] [address] [place], [id number] Subjective: * Chief Complaints: * ???1. FASTING LABS/ CRP Eryt hrocyte sedimenatation rate. * Medical History:?10/2008 - C ysto, Cysto again 07/[address] Gonsales, [employer], , [facility], [facility], appt 09/02/13, Colonoscopy done 06/10/[address] Che - repeat 10 years. * Medications:?Unknown Floraje n Digestion - Capsule as directed Orally , Unknown Albuterol Sulfate HFA 108 (90 Base) MCG/ACT Aerosol Solution 1 puff as needed Inhalation every 4 hrs , Unknown EpiPen 2-Tyson 0.3 MG/0.3ML Device as directed Injection daily , Unknown Levothyroxine Sodium 75 MCG Tablet TAKE 1 TABLET BY MOUTH DAILY IN THE MORNING ON AN EMPTY STOMACH , Unknown traMADol HCl 50 MG Tablet 1 tablet as needed Orally twice a day , Unknown Gabapentin 300 MG Capsule 1 capsule Orally Once a day , Unknown Tamsulosin HCl 0.4 MG Capsule 1 capsule Orally Once a day , Unknown Diclofenac Potassium 50 MG Tablet 1 tablet with food or milk as needed Orally Twice a day , Unknown Singulair 10 MG Tablet 1 tablet Orally Once a day , Unknown Vitamin B6 50 MG Tablet 1 tablet Orally , Unknown Zomig 2.5 MG Solution 1 tablet as needed one time Nasally Once a day * Allergies:?Benadryl: hives, Bactrim: rash, Levaquin: tendon inflammation. Objective: * Vitals:? Assessment: * Assessment: 1.?Osteomyelitis of spine - M46.20 (Primary)???2.?Weight gain - R63.5???3.?Essential hypertension - I10???4.?Lymphocytosis - D72.820???5.?Annual physical exam - Z00.00??? Plan: * Treatment: 2.?Weight gain?LAB: Complete Blood Count Auto Diff (Collection Date & Time - 08/16/2024 07:15 AM) ?LAB: Comprehensive [place]. Panel Fast ?LAB: Lipid Panel with Reflex ?LAB: Vitamin D 25-OH Total ?LAB: Thyroxine T4 Total ?LAB: TSH reflex Free T4 ?LAB: UA ClnCatch+Micro w/rflx Cult (Collection Date & Time - 08/16/2024 07:15 AM) 3.?Essential hypertension?LAB: Complete Blood Count Auto Diff (Collection Date & Time - 08/16/2024 07:15 AM) ?LAB: Comprehensive [place]. Panel Fast ?LAB: Lipid Panel with Reflex ?LAB: Vitamin D 25-OH Total ?LAB: TSH reflex Free T4 ?LAB: UA ClnCatch+Micro w/rflx Cult (Collection Date & Time - 08/16/2024 07:15 AM) 4.?Lymphocytosis?LAB: Complete Blood Count Auto Diff (Collection Date & Time - 08/16/2024 07:15 AM) ?LAB: Comprehensive [place]. Panel Fast ?LAB: Lipid Panel with Reflex ?LAB: Vitamin D 25-OH Total ?LAB: TSH reflex Free T4 ?LAB: UA ClnCatch+Micro w/rflx Cult (Collection Date & Time - 08/16/2024 07:15 AM) 5.?Annual physical exam?LAB: Complete Blood Count Auto Diff (Collection Date & Time - 08/16/2024 07:15 AM) ?LAB: Comprehensive [place]. Panel Fast ?LAB: Lipid Panel with Reflex ?LAB: Vitamin D 25-OH Total ?LAB: TSH reflex Free T4 ?LAB: UA ClnCatch+Micro w/rflx Cult (Collection Date & Time - 08/16/2024 07:15 AM) * Procedure Codes:?24196 VENIP UNCT, ROUTINE* * * The named appointment provid er may or may not be the originator of this progress note, and it is not deemed complete until electronically signed by the appointment provider. Sign off status: Pending * Provider:?Billy Cope MD Date:?0 08/16/2024 Generated for Mckenna winchester/Carli/Jai on:?08/16/2024 11:45 AM EDT
--- OUTSIDE RECORDS SUMMARY | 2024-08-16 11:46 | XMS_ITS | Patient Health Record ---
Author Organization Billy Cope MD Address [address] [place], [place] [id number] Care Team Providers Care Post Form Remover Name Role Phone Billy Cope Primary Care [...] (Not yet reviewed by provider) Interpretation: Performing Lab:[facility], [address] [place] [phone] Notes/Report: White Blood Count 4.6 4.8-10.8 X10*3/uL [...] 0.0-0.2 /100WBC Neutrophils Absolute Auto 2.2 2.0-8.3 x10*3/uL Imm Gran Abs Auto 0.01 0.00-0.03 X10*3/uL Lymphocytes Absolute Auto 1.8 1.2-4.9 X10*3/uL Monocytes Absolute Auto 0.5 0.1-1.2 X10*3/uL Eosinophils Absolute Auto 0.1 0.0-0.4 X10*3/uL Basophils Absolute Auto 0.0 0.0-0.2 X10*3/uL NRBC Abs Auto 0.000 0.0-0.012 X10*3/uL UA ClnCatch+Micro w/rflx Cul t (Not yet reviewed by provider) Interpretation: Performing Lab:[facility], [address] [place] [phone] Notes/Report: Urine, Clean Catch Color Urine Yellow Appearance Urine Clear PH 6.5 5.0-9.0 Glucose Urine UA Negative Negative mg/dL Urine Blood Small (1+) Negative Specific Bow - Urine 1.020 1.005-1.025 Urine Protein Negative [...] date:12/09/2023 04:33:49 PM Interpretation: Performing Lab: Notes/Report: [address] [address] Ultrasound Report Signed Patient: Jazzmine Holbrook MR#: [id number] [birth year] : 1965 Acct:[id number] Age/Sex: 58 / F ADM Date: 11/26/23 Loc: HO.US Attending Dr: Amrit Rodriges MD Ordering Physician: Amrit Rodriges MD Date of Service: 11/26/23 Procedure(s): US renal BI Accession Number(s): [id number] cc: Amrit Rodriges MD; Billy Cope MD [...] OV> 12/09/23 1532 DD/ 4 TD/TT: 11/26/23927 Associate Dean Of Students: [place] [id number] Ultrasound Report Signed Patient: Ana Holbrook MR#: [id number] 56 : 1965 Acct:[id number] Age/Sex: 58 / F ADM Date: 11/26/23 Loc: HO.US Attending Dr: Eliezer Catherine MD Ordering Physician: Amrit Rodriges MD Date of Service: 11/26/23 Procedure(s): US belen al BI Accession Number(s): [id number] cc: Amrit Rodriges MD; Billy Cope MD EXAMINATION: US BILATERAL KIDNEYS CLINICAL INFORMATION: Calculus of kidney. COMPARISON: Renal ultrasound 04/30/2023 TECHNIQUE: Real-time imaging of the kidneys. FINDINGS: RIGHT KIDNEY: 9.8 x 6.0 x 5.7 cm (SAG x AP x TRV). The kidney is normal in size, contour, an d echogenicity. Renal cortical thickness is normal. No calculi or focal parenchymal lesions. No hydronephrosis. LEFT KIDNEY: 10.6 x 4.8 x 4.6 cm (SAG x AP x TRV). The kidney is normal in size, contour, an d echogenicity. Renal cortical thickness is normal. No focal parenchymal lesions or hydronephrosis. 2 mm nonobstructing calculus in the uppe r pole. U S/US renal BI IMPRESSION: 2 mm nonobstructing calculus left upper kidney. No hydronephrosis. Electronically janet d by: Dayday Mukherjee MD 12/09/2023 03:32 PM EDT RP Dictated By: Dayday Mukherjee MD Signed By: <Electronically signed by Dayday Mukherjee MD in OV> 12/09/23 1532 DD/ 4 TD/TT: 11/26/23927 Associate Dean Of Students: BALTA Archer (Not yet reviewed by provider) Interpretation: Performing Lab:[facility], [address] [place] [phone] Notes/Report: Reji Archer See Note Specimen held untested for 24 hours; Call to request Chemistry testing. Reason For Referral Reason please eval and marissa t Diagnosis 1 Osteomyelitis of spi ne (M46.20) Diagnosis 2 Lumbar discitis (M46 .46) Referral Organization Billy Cope MD Referring Provider First Name Billy Referring Provider Last Name Anatoliy Referring Provider Speciality Internal M edicine Referred Provider [facility] Infecti ous disease, [facility] Infectious disease Referred Provider Specialty Infectious D isease General Notes Chelly Harper 0 04/21/2024 02:17:18 PM >info faxed to [facility] , patient is booking this her self, Chelly Harper 05/06/2024 02:51:27 PM > patient is aware of appt Referral Priority Routine Referral Appointment Date 05/11/2024 Reason Lumbar discitis Diagnosis 1 Lumbar discitis (M46 .46) Referral Organization Billy Cope MD Referring Provider First Name Billy Referring Provider Last Name Anatoliy Referring Provider Speciality Internal M edicine Referred Provider Blake Ramos Referred Provider Specialty Neurological Surgery General Notes Chelly Harper 0 05/12/2024 10:14:49 AM > info faxed and MRI images down loaded to [facility],, Chelly Harper 05/19/2024 01:17:16 PM > spoke with patient she said she was told by office that Dr. Ramos was reviewing her referral, Chelly Harper 05/19/2024 01:38:49 PM > patient called back regarding referral. She was told Dr. Ramos doesn't see patient with her DX. no need for referral, marked pending Referral Priority Routine Medications Medication SIG (Take, Route, Frequency, Duration) Notes Start Date End Date Status Gabapentin 300 MG 1 capsule Orally Onc e a day for 30 day(s) 06/02/2024 Unknown Tamsulosin HCl 0.4 MG 1 capsule Orally O nce a day for 30 day(s) Unknown Diclofenac Potassium 50 MG 1 tablet with food or milk as needed Orally Twice a day Unknown Zomig 2.5 MG 1 tablet as needed o ne time Nasally Once a day for 10 days 05/24/2013 Unknown Florajen Digestion - as directed Orally Unknown Singulair 10 MG 1 tablet Orally Once a day for 30 day(s) Unknown Vitamin B6 50 MG 1 tablet Orally for 30 day(s) Unknown Levothyroxine Sodium 75 MCG TAKE 1 [...] jection daily for 1 dose 01/31/2013 Unknown Immunizations Vaccine Route Administration Date Status Comme nts Flu Vaccine Unknown 12/29/2012 Administered At work. Fluarix Quadrivalent Unknown 01/17/2014 Administered [facility] Flu Vaccine IM Intramuscular 01/03/2016 Administered pt wa s given the vaccine at her [facility]'s place of work. Flu Vaccine Unknown 01/23/2017 Administered pt was give n the vaccine at work. TDaP IM Intramuscular 11/18/2017 Administered pt was given the vaccine at [employer] [facility] [employer] in [place]. Tetanus Unknown 11/18/2017 Administered Flu Vaccine IM Intramuscular 01/22/2018 Administered Pt wa s given the vaccine at work @ [facility] Fluarix Quadrivalent Unknown 01/09/2020 Administered SAt work [facility] Covid Vaccine Unknown 03/27/2020 Administered [facility] Covid Vaccine Unknown 04/19/2020 Administered [facility] SARS-COV-2 Pfizer Unknown 01/14/2021 Administered [employer] Fluarix Quadrivalent Unknown 01/10/2021 Administered Flu Vaccine Unknown 01/17/2014 Pending Social History Tobacco Use: Social History Observation Description Date Details (start date - stop date) Never Smoker NA - NA Tobacco Use/Smoking Question Answer Notes Patient is [...] Never (0 point) Points 1 Interpretation Negative Problems Problem Type SNOMED Code ICD Code Onset Dates Problem Status W/U Status Risk Notes Problem 74485085 Lymphocytosis (D72.820) Active confirmed Problem 571299002 Reflux esophagit is (K21.00) Active confirmed Problem 91515230 Vitamin D deficiency (E55.9) Active confirmed Problem 908477224 Osteopenia (M85.80) Active confirmed Problem 86407865 Essential hypertension (I10) Active confirmed Problem 50707527 Postoperative hypothyroidism (E89.0) Active confirmed Problem 82640052 Oropharyngeal dysphagia (R13.12) Active confirmed Problem 28905932 Sciatica of righ t side (M54.31) Active confirmed Problem 554757581 Mild intermitten t asthmatic bronchitis with acute exacerbation (J45.21) Active confirmed Problem Hypothyroidism (acquired) (E03.9) Active confirmed Problem 082853812 Lumbar discitis (M46.46) Active confirmed Problem 48295750 Renal stone (N20.0) Active confirmed Problem 111587938 Osteomyelitis of spine (M46.20) Active confirmed Vital Signs Blood pressure diastolic 74 mm Hg 05/30/2024 Height 64.25 in 05/30/2024 Blood pressure systolic 120 mm Hg 05/30/2024 Weight 158 lbs 05/30/2024 BMI 26.91 kg/m2 05/30/2024 Encounters Encounter Location Date Provider Diagnosis Billy Cope MD [address] [place] [id number] 02/11/2024 Billy Monikaardier Osteomyelitis of spine M46.20 Billy Cope MD [address] [place] [id number] 08/16/2024 Billy Bombardier Osteomyelitis of spine M46.20 ; Weight gain R63.5 ; Essential hypertension I10 ; Lymphocytosis D72.820 and Annual physical exam Z00.00 Billy Cope MD [address] [place] [id number] 12/24/2023 Billy Cope Lumbar discitis M46.46 Billy Cope MD [address] [place] [id number] 12/25/2023 Billy Cope Renal stone N20.0 Billy Cope MD [address] [place] [id number] 01/05/2024 Billy Monikaardier Osteomyelitis of spine M46.20 Billy Cope MD [address] [place] [id number] 03/10/2024 Billy Bombardier Osteomyelitis of spine M46.20 Billy Cope MD [address] [place] [id number] 03/22/2024 Billy Bombardier Osteomyelitis of spine M46.20 Billy Cope MD [address] [place] [id number] 04/11/2024 Billy Bombardier Osteomyelitis of spine M46.20 Billy Cope MD [address] [place] [id number] 05/09/2024 Billy Anatoliy Subcutaneous nodule R22.9 and Osteomyelitis of spine M46.20 Billy Cope MD [address] [place] [id number] 05/30/2024 Billy Monikaardier Osteomyelitis of spine M46.20 Billy Cope MD [address] [place] [address] [id number] 12/25/2023 Billy Cope MD [address] [place] [address] [id number] 12/29/2023 Billy Cope MD [address] [place] [id number] 01/15/2024 Billy Cope MD [address] [place] [address] [id number] 03/17/2024 Billy Cope MD [address] [place] [address] [id number] 05/12/2024 Billy Cope MD [address] [place] [address] [id number] 05/31/2024 Billy Cope MD [address] [place] [address] [id number] 07/11/2024 Billy Cope MD [address] [place] [id number] 11/23/2023 Billy Cope Shrimp allergy Z91.013 Billy Cope MD [address] [place] [address] [id number] 02/16/2024 Billy Cope MD [address] [place] [id number] 04/20/2024 Billy Cope MD [address] [place] [id number] 06/01/2024 Billy Cope Assessments Encounter Date Diagnosis (ICD Code) Assessment Notes Treatment Notes Treatment Clinical Notes Section Notes 02/11/2024 Osteomyelitis of spine (ICD-10 - M46.20) need discharge summary from [facility] in that she is need of another mri/ will send for request for records. is having severe pain still but it is changing in location. the cultures did not show anything. i told her that if id didn't order another mri to call me and i would. 08/16/2024 Osteomyelitis of spine (ICD-10 - M46.20) 08/16/2024 Weight gain (ICD-10 - R63.5) 12/24/2023 Lumbar discitis (ICD-10 - M46.46) patient verbalized understanding of medication and instructions for use, needs STAT with reading.. if getting worse to go to the hospital . does not want to go at present/ patient will be going to [facility] ER/ DR CALLED ER AND OFFICE NOTE FAXED 12/25/2023 Renal stone (ICD-10 - N20.0) appears almost completely better. had a negarive venous us 01/05/2024 Osteomyelitis of spine (ICD-10 - M46.20) have gone over the results of the mri with her and she is still in pain. have advised her to go to [facility] er and i will speak with the triage person there 03/10/2024 Osteomyelitis of spine (ICD-10 - M46.20) is going back to infection disease 03/22/2024 Osteomyelitis of spine (ICD-10 - M46.20) on iv antibiotics again pain is about 50% better., Total time spent on the date of the encounter is 35 minutes including both face to face time spent and time spent reviewing documentation, pertinent lab data, and counseling the patient. 04/11/2024 Osteomyelitis of spine (ICD-10 - M46.20) MRI order faxed to [facility]/ at this poing infectious disease has no follow up on her osteomylits and she still is haivng pain. they have no plans other than to finish the coarse of treatment with no further appointments. will do a repeat mri after the treatment is finished and determine what else to do. she is awaitint an appt with [facility] which seems [place]. will repeat the mri in one month\, Total time spent on the date of the encounter is 35 minutes including both face to face time spent and time spent reviewing documentation, pertinent lab data, studies and counseling the patient. 05/09/2024 Subcutaneous nodule (ICD-10 - R22.9) possibly a small superficial phlebitis// to use hot packs to area. 05/30/2024 Osteomyelitis of spine (ICD-10 - M46.20) patient verbalized understanding of medication and directions for use 11/23/2023 Shrimp allergy (ICD-10 - Z91.013) 08/16/2024 Essential hypertension (ICD-10 - I10) 05/09/2024 Osteomyelitis of spine (ICD-10 - M46.20) is going to go to [place] in 2 days, will continue current regiment 08/16/2024 Lymphocytosis (ICD-10 - D72.820) 08/16/2024 Annual physical exam (ICD-10 - Z00.00) Plan Of Treatment Pending Test Test Name Order Date Electrocardiogram (EKG) 04/30/2017 Electrocardiogram (EKG) 05/13/2018 Electrocardiogram (EKG) 05/20/2019 PAP SMEAR (THIN PREP) 09/29/2014 BONE DENSITY DEXA 06/01/2020 Complete Blood Count Auto Diff Comprehensive [place]. Panel Fast Lipid Panel with Reflex 08/16/2024 Vitamin D 25-OH Total 08/16/2024 Thyroxine T4 Total 08/16/2024 TSH reflex Free T4 08/16/2024 Hold Gold 08/16/2024 MR lumbar spine wo/w con 12/24/2023 UA ClnCatch+Micro w/rflx Cult 08/16/2024 CRP 08/16/2024 Erythrocyte Sedimentation Rate Future Test Test Name Order Date BONE DENSITY DEXA 06/08/2021 MR lumbar spine wo/w con 05/09/2024 Next Appt Details Provider Name:Billy Ladarius Harp ier, 08/18/2024 09:30:00 AM, [address] [place] [address], [address], [place], [place], [id number], Insurance Providers Payer Name Payer Address Payer Phone Subscriber Number Group Number Insured Name Patient Relationship to Insured Coverage Start Date Coverage End Date [employer] [address] [place], [place] [id number] Jazzmine Holbrook Self - patient is the insured Medical (General) History Medical History History ICD Code 10/2008 - Cysto, Cysto again 07/2018 Nega tive work up with 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 Che - repeat 10 years Surgical History Surgery Date(Month/Year) thyroidectomy, subtotal 2006
[2024-08-16 11:57] LABS: C Reactive Protein 0.35 mg/dL (< or = 0.50)
[2024-08-16 11:58] LABS: Alanine Aminotransferase 17 U/L (0-31); Albumin Level 4.1 g/dL (3.5-5.0); Anion Gap 13 (12-20); Aspartate Amino Transferase 20 U/L (5-31); Blood Urea Nitrogen 21 mg/dL (9-16); Calcium 9.2 mg/dL (8.4-10.2); Carbon Dioxide 27 mmol/L (22-29); Chloride 105 mmol/L (96-108); Cholesterol 253 mg/dL (<200); Erythrocyte Sedimentation Rate 11 MM/HR (0-20); Estimated Glomerular Filt Rate > 60; Glucose Fasting 89 mg/dL (60-99); HDL Cholesterol 87 mg/dL (>40); LDL Cholesterol Calculated 148 mg/dL (<100); Sodium 141 mmol/L (135-145); Total Protein 7.2 g/dL (6.5-8.0); Triglycerides 91 mg/dL (<150)
[2024-08-16 12:35] LABS: T4 Thyroxine 10.4 ug/dL (4.5-12.0); TSH reflex Free T4 1.25 uIU/mL (0.32-4.0); Vitamin D 25-OH Total 66.8 ng/mL (>30)
[2024-08-16 12:38] LABS: Alkaline Phosphatase 88 U/L (39-117)
[2024-08-16 13:15] LABS: Reflex LDLD? No
== END 2024-08-16 10:34 | disposition home or self-care (01) ==
LOC: HO.LNP 10:33
PROVIDERS: Visit Provider Internal Medicine
DX: Z00.00 Encounter for general adult medical examination without abnormal findings (principal); M46.20 Osteomyelitis of vertebra, site unspecified; R63.5 Abnormal weight gain; I10 Essential (primary) hypertension; D72.820 Lymphocytosis (symptomatic)
CPT/HCPCS: 80053; 80061; 81001; 82306; 84436; 84443; 85025; 85652; 86140; 87086

== ENCOUNTER 2024-09-27 09:50 | Outpatient (AMB) | payer BC, SELFPAY ==
--- NOTE | 2024-09-27 10:12 | MHC.OFFVIS ---
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 Accompanied by: Self / Same As Patient Allergies shrimp Allergy (Severe, Verified 09/27/24 10:13) HIVES/VOMITING latex (Latex) Allergy (Intermediate, Verified 09/27/24 10:13) RASH sulfamethoxazole (From BACTRIM) Allergy (Intermediate, Verified 09/27/24 10:13) HIVES trimethoprim (From BACTRIM) Allergy (Intermediate, Verified 09/27/24 10:13) HIVES Sulfa (Sulfonamide Antibiotics) Allergy (Unknown, Verified 09/27/24 10:13) hives From Benadryl Allergy (Severe, Uncoded 01/01/24 09:04) HIVES/SWELLING Benadryl Allergy (Unknown, Uncoded 01/01/24 09:04) rash Latex Gloves Allergy (Unknown, Uncoded 01/01/24 09:04) rash HPI Comments Details: Jazzmine is a pleasant female. She is a patient of Dr. Cope. 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 which was treated with three-month antibiotics Cystoscopy today shows urethral caruncle Start topical estrogen Nephrolithiasis Initial presentation with microscopic hematuria Imaging - 09/24 renal ultrasound 2 mm left-sided stone - 05/28 renal ultrasound 2 mm left-sided stone stable - 04/28 renal ultrasound 2 small stones left side - 05/30 renal ultrasound no stones seen - 11/27 CT scan small stone left side stable Occasional flank pain but otherwise stable Therapeutic plan [facility] Medical History Hematuria OA (osteoarthritis) Thyroid disease Uterine fibroid H/O urinary retention Multiple renal calculi Surgical History History of surgery Social History Advance Directives Date on File: 01/10/20 Review of Systems Const Denies chills and Denies fever(s) Card Reports no additional complaints and Denies syncope Resp Denies cough GI Denies abdominal pain and Denies heartburn Reports as per HPI and Denies change in libido Neuro Denies syncope Psych Denies change in libido Endo Denies change in libido Physical Exam Const General: cooperative, healthy appearing, comfortable and no acute distress Orientation/consciousness: patient oriented x3 HEENT Face and sinus: Yes normal facial exam Mouth: moist mucous membranes Neck Neck: Yes normal visual inspection, Yes full ROM and Yes trachea midline Chest Chest palpation & inspection: normal inspection of the chest Resp Effort & Inspection: normal respiratory effort, able to speak in complete sentences and no respiratory distress GI Inspection: Yes normal to inspection Back/Spine/Pelvis Cervical Spine: normal cervical lordosis Thoracic/Lumbar Spine: thoracic and lumbar spine normal to inspection Skin General skin exam: no rashes or lesions noted Neuro General: patient oriented x3, gait normal, tone normal and moves all extremities Extrem General: Yes normal to inspection and Yes capillary refill normal Office Procedures Cystoscopy Consent Discussed risk and benefit or proposed procedure with the patient. Information consent for procedure given to the patient. Discussed technical aspects, risks, benefits and alternatives in full. Addressed all of the patient's questions and concerns regarding the procedure. The patient demonstrated knowledge and understanding. They wish to proceed with this procedure. Preparation The patient was prepped in the usual manner. A cost accounting clerk was present and in the room. Genitalia was prepped with betadine solution in a sterile manner. Lidocaine Jelly 2% was placed into the urethra and 16Fr flexible Olympus cystoscope was inserted into the meatus after adequate lubrication. Procedure Meatus caruncle small Urethra normal Bladder examination with retroflexion of cystoscope Bladder Orifices normal shape and position Trigone normal Bladder Capacity Normal Trabeculations Grade 0 Cellule Formation None Diverticulum Formation None Mucosal Erythema None Bladder Tumor None [id number] DISPOSABLE SCOPE URO-G FLEXIBLE SCOPE Procedure code (CPT) selection complete Office Meds lidocaine HCl 2 % mucosal jelly in applicator Performing Provider: Amrit Rodriges MD Performing Location: [facility] Administered by: Gera Raya LPN on 09/27/24 10:46 Dose Route Admin Location Dispensed Lot Number Expiration Date [facility] Weights And Measures Inspector 10 mL intra-urethral 10 mL nitrofurantoin monohydrate/macrocrystals 100 mg capsule Performing Provider: Amrit Rodriges MD Performing Location: [facility] Administered by: Gera Raya LPN on 09/27/24 10:46 Dose Route Admin Location Dispensed Lot Number Expiration Date [employer] Weights And Measures Inspector 100 mg PO 1 cap Assessment & Plan Assessment & Plan (1) Urethral caruncle: Code(s): N36.2 - Urethral caruncle Category: Medical (2) Microscopic hematuria: Code(s): R31.29 - Other microscopic hematuria Category: Medical Plan Start topical estradiol Six-month follow-up tele Orders: Orders AMB Cystoscopy Today N20.0 - Calculus of kidney Patient Instructions: This note is constructed using voice recognition software. While every effort has been made to ensure accuracy echocardiography technologist errors may have been included. Imaging studies, laboratory and physical exam results were discussed and reviewed in detail. No major barriers to patient understanding were identified. An opportunity to ask questions regarding the treatment plan was provided. All questions were answered. The patient expressed understanding and agreement with the above treatment plan. The patient is aware they should contact our office by phone for worsening of their current condition or the appearance of new urologic symptoms. Compliance is encouraged with any medications and followup testing that is ordered. It is a privilege to participate in the urologic care of your patient. If you have any questions or concerns regarding treatment for the above conditions, or other urologic issues, please do not hesitate to contact me. The office telephone contact is [phone]. Sincerely, Dr Amrit Rodriges MD, [facility] - Urology Compassionate Specialist Care for the Genitourinary System Coding Level of Care Code Est Pt Level 4 (72704) Diagnoses Urethral caruncle N36.2 Microscopic hematuria R31.29 CPT Codes Cystoscopy - CPT: [id number] ([id number])
== END 2024-09-27 11:06 | disposition home or self-care (01) ==
LOC: HO.HUSH 09:51
PROVIDERS: PCP Internal Medicine; Visit Provider Urology
DX: N36.2 Urethral caruncle (principal); R31.29 Other microscopic hematuria; N20.0 Calculus of kidney; Z13.9 Encounter for screening, unspecified
CPT/HCPCS: 52000; 99214

== ENCOUNTER → 2024-09-27 09:50 | Outpatient (BNVA) | payer BC, SELFPAY | PROVIDERS: PCP Internal Medicine; Visit Provider Urology | DX: N36.2 Urethral caruncle (principal) | CPT/HCPCS: 52000; 81003 ==